=== PATIENT | male | born 1975 | race Caucasian/White ===

== ENCOUNTER → 2018-02-18 17:48 | Outpatient (CLI) | payer OTHER, SELFPAY ==
--- NOTE | 2018-02-18 18:15 | RAD_ITS ---
STUDY: X-RAY - LUMBOSACRAL SPINE REASON FOR EXAM: Male, 42 years old. TECHNIQUE: view(s) of the lumbosacral spine were obtained. COMPARISON: None FINDINGS: Normal lumbar lordosis. There is no substantial scoliosis. There is normal alignment of the vertebrae. Normal vertebral bodies and endplates. Normal disc space heights. There is no spondylolysis or spondylolisthesis The spinous and transverse processes as well as the pedicles are intact. Normal bilateral sacral ala, sacroiliac joints, and visualized sacrum. Normal visualized soft tissue structures. RAD/L/S Spine Comp/w Bending Views IMPRESSION: Normal x-ray examination of the lumbosacral spine. Electronically Signed: Vanessa Jones, at 16:53 EST Tel , Service support ,
== END ==
PROVIDERS: Family Provider Family Medicine; PCP Family Medicine; Referring Provider Anesthesiology Pain Medicine; Visit Provider Anesthesiology Pain Medicine
DX: M54.5 Low back pain (principal)
CPT/HCPCS: 72114

== ENCOUNTER 2023-03-08 18:09 | Emergency (ER) | payer BC, SELFPAY ==
[2023-03-08 18:10] VITALS: BP 188/111; PULSE 89; RESP 16; TEMP 36.4; O2SAT 99; BMI 31.1
--- NOTE | 2023-03-08 18:14 | EKG12_ITS ---
Test Reason : CHEST PRESSURE Blood Pressure : / mmHG Vent. Rate : 084 BPM Atrial Rate : 084 BPM P-R Int : 164 ms QRS Dur : 076 ms QT Int : 352 ms P-R-T Axes : 118 -28 -31 degrees QTc Int : 415 ms Normal sinus rhythm Minimal voltage criteria for LVH, may be normal variant ( R in aVL ) Nonspecific T wave abnormality Abnormal ECG Confirmed by OWEN MAYA, NATHALIE ([id number]), tape editor RUSSELL MARIANO ([id number]) on 03/09/2023 9:37:22 AM Referred By: Confirmed By:NATHALIE WEAVER MD
--- NOTE | 2023-03-08 18:25 | EX.ED.DYSGE1 ---
HPI <PHIL Stewart - Last Filed: 03/08/23 19:42> History of Present Illness Chief Complaint: Palpitations Narrative Narrative: 47-year-old male with PMH of HTN, HLD, remote A-fib status post ablation presents with chest pain. Over the last 2 months he has had episodes of dull pain across both sides of his chest that radiates up to his throat. He will feel warm when the pain occurs but has no shortness of breath, nausea or vomiting. It usually occurs at rest and last 2 to 3 minutes. It happened about once a day but last night woke him up at 2 AM and seemed more intense. He has had more frequent episodes today about 10 times each lasting a couple minutes. It is not exertional or pleuritic. He has no fever or cough. He occasionally feels his heart beating strongly associated with it. He is scheduled for an outpatient 30-day Holter monitor to be put on tomorrow. 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 He takes losartan 100 mgonce daily, metoprolol 50 mg once daily, and a statin. PFSH <PHIL Stewart - Last Filed: 03/08/23 19:42> PFSH Allergy/AdvReac Type Severity Reaction Status Date / Time No Known Allergies Allergy Verified 03/08/23 18:13 Social History Smoking Status: Never smoker ROS <PHIL Stewart - Last Filed: 03/08/23 19:42> ROS ED ROS Narrative Constitutional: Negative for fever, chills, malaise. CVS: Positive for palpitations, chest pain. Negative for syncope. Respiratory: Negative for shortness of breath, cough, orthopnea. GI: Negative for abdominal pain, nausea, vomiting. Neuro: Negative for headache. EXAM <PHIL Stewart Last Filed: 03/08/23 19:42> Physical Exam Narrative Exam Narrative: CONST: Patient sitting in no acute distress. EYES: Normal inspection. NECK: Normal inspection. RESP: No respiratory distress, CTAB. CVS: Regular rate and rhythm, no murmur, no gallop. ABD: Soft and nontender, no guarding or rebound, nondistended. SKIN: Color normal, no rash, warm, dry, intact. EXTREMITIES: Normal appearance, no pedal edema. 2+ radial and DP pulses. NEURO: Oriented x4. PSYCH: Normal affect. Const Vital Signs: 03/08/23 18:10 03/08/23 18:28 Temperature 97.5 F L Temperature Source Temporal Pulse Rate 89 Respiratory Rate 16 Respiratory Effort Normal Blood Pressure 188/111 H Blood Pressure Mean 136 Pulse Ox 99 Oxygen Delivery Method Room Air <Dr. Hernandez Laughlin MD - Last Filed: 03/08/23 18:46> Physical Exam Const Vital Signs: 03/08/23 18:10 03/08/23 18:28 Temperature 97.5 F L Temperature Source Temporal Pulse Rate 89 Respiratory Rate 16 Respiratory Effort Normal Blood Pressure 188/111 H Blood Pressure Mean 136 Pulse Ox 99 Oxygen Delivery Method Room Air MDM <PHIL Stewart - Last Filed: 03/08/23 19:42> MDM MDM Narrative Medical decision making narrative: History gathered from: Patient and spouse Patient has had 2 months of chest pain episodes that occur at rest lasting 2 to 3 minutes. The increase in frequency today prompting him to come in. He is asymptomatic here. BP 188/111, otherwise normal vital signs. Has a history of hypertension on 2 meds and is compliant. His medical exam is unremarkable?RRR with no murmurs. EKG is sinus rhythm with no ischemic changes. CBC and BMP unremarkable. Troponin is 62. Patient states he has not had any chest pain episodes here. I offered to monitor him longer on telemetry and check serial enzymes but he declined. He is scheduled to get his outpatient 30-day Holter monitor placed tomorrow which is appropriate. I discussed return precautions and he was discharged in stable condition. Differential: ACS, arrhythmia, PE, GERD, anxiety Test considered but not ordered: PERC negative so did not order D-dimer Lab Data Attestation: I reviewed the patient's lab results. Labs: Laboratory Results - last 24 hr 03/08/23 18:25 WBC 10.1 RBC 5.00 Hgb 14.8 Hct 43.1 MCV 86.2 MCH 29.6 MCHC 34.3 RDW Std Deviation 38.7 RDW Coeff of Shan 12.4 Plt Count 316 MPV 9.6 Immature Gran % (Auto) 0.200 Neut % (Auto) 55.1 Lymph % (Auto) 33.4 [place] % (Auto) 9.0 Eos % (Auto) 2.1 Baso % (Auto) 0.2 Absolute Neuts (auto) 5.6 Absolute Lymphs (auto) 3.38 Nucleated RBC % 0 Sodium 140 Potassium 4.0 Chloride 105 Carbon Dioxide 27.0 Anion Gap 8 BUN 19 H Creatinine 1.20 Estim Creat Clear Calc 97.08 Est GFR (MDRD) Af Amer 84 Est GFR (MDRD) Non-Af 70 BUN/Creatinine Ratio 15.8 Glucose 93 Calcium 9.5 Troponin I High Sens 62 Radiography Diagnostic Testing: Clinical Impression(s) from Imaging Studies Chest X-Ray 03/08/23 18:35 IMPRESSION: No radiographic evidence of acute cardiopulmonary disease. Electronically Signed: Sabino Jacob MD at 19:03 EST , ED attending interpretation of 2-view chest x-ray shows normal heart size, no acute infiltrate, edema, or effusion. EKG Initial EKG: Comments: Normal sinus rhythm 84 bpm Normal intervals, no acute ischemic change <Dr. Hernandez Laughlin MD - Last Filed: 03/08/23 18:46> [facility] Lab Data Labs: Laboratory Results - last 24 hr 03/08/23 18:25 WBC 10.1 RBC 5.00 Hgb 14.8 Hct 43.1 MCV 86.2 MCH 29.6 MCHC 34.3 RDW Std Deviation 38.7 RDW Coeff of Shan 12.4 Plt Count 316 MPV 9.6 Immature Gran % (Auto) 0.200 Neut % (Auto) 55.1 Lymph % (Auto) 33.4 [place] % (Auto) 9.0 Eos % (Auto) 2.1 Baso % (Auto) 0.2 Absolute Neuts (auto) 5.6 Absolute Lymphs (auto) 3.38 Nucleated RBC % 0 Sodium 140 Potassium 4.0 Chloride 105 Carbon Dioxide 27.0 Anion Gap 8 BUN 19 H Creatinine 1.20 Estim Creat Clear Calc 97.08 Est GFR (MDRD) Af Amer 84 Est GFR (MDRD) Non-Af 70 BUN/Creatinine Ratio 15.8 Glucose 93 Calcium 9.5 Troponin I High Sens 62 Radiography Diagnostic Testing: Clinical Impression(s) from Imaging Studies Chest X-Ray 03/08/23 18:35 IMPRESSION: No radiographic evidence of acute cardiopulmonary disease. Electronically Signed: Sabino Jacob MD at 19:03 EST Reading Location ID and State: [facility] / [place] , Service support , Rhythm Strip Rhythm Strip: Sinus Rhythm Rate: 90 Ectopy: None EKG Initial EKG: Attestation: I personally reviewed and interpreted this EKG as follows: Interpretation: Sinus Rhythm and No Acute Injury Pattern Treatment and Re-Evaluation Comments:: I have personally performed a face to face assessment of the patient and have reviewed the JENNA Note. I performed a substantive portion of the visit including all aspects of the following. My finch findings include: History is brief episodes of chest discomfort and palpitations, no syncope, having going on for months but very frequent today with any light activity. Exam is asymptomatic at the current time, RRR no murmur, CTAB, no edema or calf tenderness. Well-appearing. Medical Decison Making continue to watch patient on monitor while we run basic labs and a troponin. EKG interpreted by myself as normal. Other additions or changes: [None] Discharge Plan Triage Chief Complaint: Palpitations ED Midlevel Provider: Rayna David ED Provider: Hernandez Laughlin Dx/Rx/DC Orders Clinical Impression: Chronic hypertension, Atypical chest pain Instructions: Blood Pressure Check Steps, ED Chest Pain, Uncertain Cause Primary Care Provider: Nanette Zimmer Referrals: Jorge Santiago MD [Non-Staff] - Activity Restrictions/Additional Instructions: Follow-up for his Holter monitor as scheduled, return to ER if symptoms worsen Disposition Disposition: Home, Self Care
--- NOTE | 2023-03-08 18:35 | RAD_ITS ---
EXAM: XR CHEST, 2 VIEWS CLINICAL INDICATION: chest pain TECHNIQUE: Frontal and lateral views of the chest. COMPARISON: No relevant prior studies available. FINDINGS: LUNGS AND PLEURAL SPACES: Unremarkable. No consolidation or edema. No pneumothorax. No effusion. HEART: Unremarkable. Cardiac silhouette not enlarged. MEDIASTINUM: Central airways and mediastinal contour are unremarkable. BONES/JOINTS: Unremarkable. No acute fracture. SOFT TISSUES: Unremarkable. RAD/Chest PA and Lateral IMPRESSION: No radiographic evidence of acute cardiopulmonary disease. Electronically Signed: Sabino Jacob MD at 19:03 EST ,
[2023-03-08 18:48] LABS: Absolute Lymphocyte Count 3.38 X10^3/uL (0.83-4.51); Absolute Neutrophil Count 5.6 X10^3/uL (2.0-7.7); Basophil# 0.02 X10^3/uL; Basophil% 0.2 % (0-1); Eosinophil# 0.21 X10^3/uL; Eosinophils% 2.1 % (0-5); Hematocrit 43.1 % (40-54); Hemoglobin 14.8 g/dL (13.0-16.5); Lymphocyte # 3.38 X10^3/ul (0.83-4.51); Lymphocyte % 33.4 % (19-41); Mean Corp Hgb Conc 34.3 g/dL (32-36); Mean Corpuscular Hgb 29.6 pg (27.0-32.0); Mean Corpuscular Volume 86.2 fL (80-94); Mean Platelet Vol. 9.6 fl (6.2-12.0); Monocyte# 0.91 X10^3/uL; NRBC Flagged by Analyzer 0 % (0-5); Neutrophil # 5.59 X10^3/uL (2.7-7.7); Neutrophil % 55.1 % (47-70); Platelet Count 316 K/mm3 (150-450); RBC Distribution Width CV 12.4 % (11.6-14.6); RBC Distribution Width SD 38.7 fl (35.1-43.9); White Blood Count 10.1 K/mm3 (4.4-11.0)
--- OUTSIDE RECORDS SUMMARY | 2023-03-08 18:57 | XMS RPT_ITS | CCD ---
Author Name Unknown Address [address] [place] [address] Organization [facility] Care Team Providers Care Fusion Analyst Name Role Phone Lexi Avilez Unavailable Unavailable Provider , Unlisted Primary Care Provider Unav ailable Provider , Unlisted Primary Care Provider Unav ailable CARROLL, KENDRA Attending Unavailable CARROLL, KENDRA Admitting Unavailable CARROLL, KENDRA Primary Care Unavailable CARROLL, KENDRA Consulting Unavailable PROVIDER, UNKNOWN Consulting Unavailable CARROLL, KENDRA Attending Unavailable CARROLL, KENDRA Admitting Unavailable CARROLL, KENDRA Primary Care Unavailable CARROLL, KENDRA Consulting Unavailable PROVIDER, UNKNOWN Consulting Unavailable CARROLL, KENDRA Attending Unavailable CARROLL, KENDRA Admitting Unavailable CARROLL, KENDRA Primary Care Unavailable CARROLL, KENDRA Consulting Unavailable PROVIDER, UNKNOWN Consulting Unavailable Problems Active Problems Problem Classification Problem Date Documented Da te Episodic/Chronic Disorders of lipid metabolism (2 sources) Mixed hyperlipidemia; Translations: [Mixed hyperlipidemia] Onset: 01-22-2023 Chronic Essential hypertension (1 source) Essential (primary) hypertension; Translations: [Essential (primary) hypertension] Onset: 02-18-2023 Chronic Other aftercare (1 source) Other half-way (current) drug therapy; Translations: [Other half-way (current) drug therapy] Onset: 01-22-2023 Episodic Unclassified (1 source) Unknown / UNK(Unknown) Onset: 09-17-2017 Past or Other Problems Problem Classification Problem Date Documented Da te Episodic/Chronic Other screening for suspected conditions (not mental disorders or infectious disease) (1 source) Encounter for screening for other suspected endocrine disorder; Translations: [Encounter for screening for other suspected endocrine disorder] Onset: 03-07-2022 Episodic Unclassified (1 source) WOUND LEFT HAND Onset: 09-17-2017 Results Test Name Value Interpretation Reference Range Facil ity Encounters Encounter Date Encounter Type Care Provider Facility Start: 02-18-2023 End: 02-18-2023 ambulatory [facility] Start: 01-22-2023 ambulatory [facility] Start: 03-07-2022 End: 03-07-2022 ambulatory [facility] Start: 04-01-2021 End: 04-01-2021 Subsequent hospital visit by physician Jorge Downing MD [facility] Start: 03-25-2021 End: 03-25-2021 Subsequent hospital visit by physician Jorge Downing MD Work Phone: [facility] Start: 09-17-2017 Patient encounter Lexi Gonzalezelly Marycruz acility:[facility] Procedures Date Procedure Procedure Detail Performing Clinician Start: 04-01-2021 SARS-COV-2, QPCR ([facility]) Jorge Downing MD Plan of Treatment Date Care Activity Detail Author Start: 10-24-2020 Influenza vaccination given INFLUENZA VACCINE (#1) [facility] Start: 2017 Screening mammography MAMMOGRAM [facility] Start: 1998 Screening for malignant neoplasm of cervix PAP SMEAR [facility] Start: 12-27-1995 ANNUAL WELLNESS VISIT ANNUAL WELLNESS VISIT [facility] Start: 1989 Depression screening using PHQ-9 (Patient Health Questionnaire 9) score DEPRESSION SCREENING [facility] Start: 1988 Diphtheria + pertussis + tetanus vaccine (product) DTAP/TDAP/TD VACCINE (1 - Tdap) [facility] Start: 1982 COVID-19 VACCINE (1) COVID-19 VACCINE (1) [facility] Payers Date Payer Category Payer Unknown [employer] PPO [id number] 2019-Present [phone] [address] [place] [address] PPO [id number] 2019 Unknown [employer] PPO [id number] 2019-Present [phone] [address] [place] [address] PPO [id number] 2018 Unknown [id number] 1977 Unknown [id number] 1977 Unknown [id number] 1977 Unknown [id number] Unknown [id number] Social History Date Type Detail Facility Tobacco smoking status [facility] Unknown if ever smoked [facility] Start: 1977 Sex Assigned At Not on file [facility] Tobacco smoking status [facility] Tobacco smoking consumption unknown [facility] Summary Purpose Family History No Family History Records FoundNo Family History Records FoundNo Family History Records FoundNo Family History Records FoundNo Family History Records Found Advance Directives No Advanced Directives Records FoundDocuments on File Type Date Recorded Patient Associate Director Financial Aid Expl anation Advance Directives and Living Will Power of Business And Financial Counsel DNR Documentation Additional Source Comments (unrecognized sect ion and content) No Status Records FoundNo Status Records FoundNo Status Records FoundNo Status Records Found INFORMATION SOURCE (unrecogn ized section and content) DATE CREATED AUTHOR AUTHOR'S ORGANIZ ATION 09/23/2020 [facility] DATE CREATED AUTHOR AUTHOR'S ORGANIZ ATION 04/03/2021 [facility] DATE CREATED AUTHOR AUTHOR'S ORGANIZ ATION 03/08/2022 [facility] DATE CREATED AUTHOR AUTHOR'S ORGANIZ ATION 02/20/2023 [facility] Care Teams (unrecognized sec tion and content) FOR RECORDS PERTAINING TO PATIENTS WHO ARE OR HAVE BEEN ENROLLED IN A CHEMICAL DEPENDENCY/SUBSTANCEABUSE PROGRAM, SOME INFORMATION MAY BE OMITTED. This clinical summary was aggregated from multiple sources. Caution should be exercised in using it in the provision of clinical care. This summary normalizes information from multiple sources, and as a consequence, information in this document may materially change the coding, format and clinical context of patient data. In addition, data may be omitted in some cases. CLINICAL DECISIONS SHOULD BE BASED ON THE PRIMARY CLINICAL RECORDS. [facility]. provides no warranty or guarantee of the accuracy or completeness of information in this document.
[2023-03-08 19:01] LABS: Anion Gap 8 (5-15); BUN 19 mg/dL (7-18); BUN/Creat Ratio 15.8 RATIO (10-20); Calcium,Total 9.5 mg/dL (8.5-10.1); Chloride 105 mmol/L (98-107); EST Glomerular Filtration Rate 70 mL/min (>60); Est Glom Filt Rate - Afr Amer 84 mL/min (>60); Estimated Creatinine Clearance 97.08 ml/min; Glucose 93 mg/dL (74-106); Sodium Level 140 mmol/L (136-145); Troponin-I HS 62 pg/mL (3.0-78.0)
[2023-03-08 19:48] VITALS: BP 144/96; PULSE 81; RESP 16; O2SAT 98
== END 2023-03-08 19:51 | disposition home or self-care (01) ==
PROVIDERS: Physician Assistant; Emergency Provider Emergency Medicine; PCP Family Medicine; Visit Provider Emergency Medicine
DX: R00.2 Palpitations (principal); R07.89 Other chest pain; I10 Essential (primary) hypertension; E78.5 Hyperlipidemia, unspecified; Z79.899 Other long term (current) drug therapy
CPT/HCPCS: 71046; 80048; 84484; 85025; 93005; 99284; A4216

== ENCOUNTER 2023-03-14 12:50 | Inpatient (IN) | payer BC, SELFPAY ==
[2023-03-14] VITALS (25 sets, daily range): BP systolic 124–196; BP diastolic 75–145; PULSE 77–101; RESP 11–20; TEMP 35.7–36.1; O2SAT 98–100; BMI 31.5; BMI 32.5
--- NOTE | 2023-03-14 13:02 | ED.VIS.CHEST ---
HPI History of Present Illness Chief Complaint: Chest Pain Informant: patient and spouse/S.O. Narrative Narrative: Patient presenting with unrelenting chest tightness that started around 5 AM this morning, this was about 8 hours prior to evaluation here in the ER, he came in by private vehicle with his significant other. He was here 1 week ago, he has been having episodes of chest tightness and palpitations for 2 months, 2 weeks ago when he was here he had much more frequent episodes of the palpitations but then once in the emergency department they stopped and his workup was negative, he declined to stay for a second troponin measurement, the initial 1 was borderline but within normal limits and his EKG was normal. Since then, he has had a couple of relatively brief episodes, while on an event monitor that he received the day after his ER visit that was already scheduled, and this is the first time that the discomfort has lasted this long and been unrelenting. It is making him feel nauseated and a little short of breath but no pleuritic discomfort it is substernal radiating to his right neck and jaw. He denies feeling any palpitations today. [facility] Medical History (Updated 03/14/23 @ 13:[address] Hernandez Laughlin MD) Afib HLD (hyperlipidemia) HTN (hypertension) Home Medications famotidine 20 mg tablet 20 mg PO Q12H 03/14/23 [History Last Taken 03/14/23] losartan 100 mg tablet 100 mg PO DAILY 03/14/23 [History Last Taken 03/14/23] metoprolol tartrate 50 mg tablet 50 mg PO DAILY 03/14/23 [History Last Taken Unknown] rosuvastatin 5 mg tablet 5 mg PO DAILY 03/14/23 [History Last Taken Unknown] Allergy/AdvReac Type Severity Reaction Status Date / Time No Known Allergies Allergy Verified 03/14/23 12:59 Surgical History H/O cardiac radiofrequency ablation Social History Smoking Status: Never smoker ROS ROS ED Constitutional Constitutional ED: Reports malaise and weakness; Denies chills or fever(s) Eyes Eyes: Denies change in vision or diplopia ENT ENT ED: Denies rhinorrhea or sore throat Cardiovascular Cardiovascular: Reports chest pain; Denies palpitations Respiratory/Chest Respiratory/Chest: Reports dyspnea; Denies cough Gastrointestinal Gastrointestinal: Reports nausea; Denies abdominal pain, diarrhea or vomiting Genitourinary Genitourinary ED: Denies dysuria or hematuria Musculoskeletal Musculoskeletal: Denies back pain or neck pain Integumentary Denies abscess or rash Neurologic Neurologic: Denies headache(s), paresthesias or weakness Psychiatric Psychiatric: Denies anxiety or suicidal thoughts EXAM Physical Exam Const Vital Signs: 03/14/23 12:50 03/14/23 12:59 03/14/23 13:10 Temperature 96.2 F L Temperature Source Temporal Pulse Rate 88 101 H Respiratory Rate 16 16 18 Blood Pressure 196/135 H 193/145 H 196/135 H Blood Pressure Mean 155 155 Pulse Ox 100 98 Oxygen Delivery Method Room Air Room Air Oxygen Flow Rate (L/min) 03/14/23 13:10 03/14/23 13:13 03/14/23 13:14 Temperature Temperature Source Pulse Rate 92 91 Respiratory Rate 20 H 16 Blood Pressure 188/136 H 188/136 H Blood Pressure Mean 153 153 Pulse Ox 98 99 99 Oxygen Delivery Method Room Air Nasal Cannula Oxygen Flow Rate (L/min) 2 03/14/23 13:21 Temperature Temperature Source Pulse Rate 96 Respiratory Rate Blood Pressure 193/139 H Blood Pressure Mean Pulse Ox Oxygen Delivery Method Oxygen Flow Rate (L/min) Positive well nourished and well developed General Appearance ED: well developed and NAD HEENT Reports moist mucous membranes normocephalic and atraumatic Eyes PERRL and EOMs intact bilaterally Neck full ROM and supple Resp normal respiratory effort and clear to auscultation bilaterally Cardio regular rate, regular rhythm and no murmurs GI non-tender and non-distended Auscultation: normoactive bowel sounds Palpation: soft Back/Spine no CVA tenderness General Back: other FROM Extremity normal to inspection General Extremety ED: Negative for edema, pulses abnormal or tenderness General Extremity: Negative for edema or pulses abnormal Neuro oriented x3, CN's II-XII intact bilaterally and no sensory deficits noted Sensorium / Orientation: awake and alert Motor Exam: strength 5/5 throughout Skin no rashes or lesions noted and no wounds Heart Score History: Highly Suspicious ECG: Significant ST-Depression Age: </= 45 years Risk Factors: 1 or 2 Risk Factors Score: 5 MDM MDM MDM Narrative Medical decision making narrative: EKG was performed upon the patient's arrival and brought to me prior to me seeing the patient, it is consistent with an inferior STEMI. The team was called. Cardiology called and after evaluating the patient I discussed with him and he came to the emergency department and advised heparin and Brilinta. The last 2-month history is relatively less consistent with ischemic symptoms but rather more palpitations. These symptoms seem different compared with what he has been experiencing in the past couple of months. He has been wearing the event monitor for 5 days, no one called him about any dangerous electrical events. Differential includes acute CT as well as coronary vasospasm especially with his extremely high blood pressures, ventricular wall abnormalities, myocarditis, this is not an exclusive list. He is very nauseated and his pressure is very high. He is being given IV fluids, Zofran, morphine, aspirin, Brilinta, heparin. Will continue watching his pressure, but avoiding nitroglycerin given inferior process appearance on the EKG. Cardiology requesting that we hold off on labetalol which is ordered and give him a sublingual nitroglycerin given his pressure. 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 His troponin came back at [address], although this does not make a statement about the etiology. His lungs are clear clinically and 1 view chest x-ray my interpretation does not show acute pulmonary edema or mediastinal widening. History & Record Review Discussion w/independent historian: Patient and Significant other Additional record(s) reviewed:: Prior ED visit and Prior labs Lab Data Attestation: I reviewed the patient's lab results. Labs: Laboratory Results - last 24 hr 03/14/23 13:02 WBC 9.4 RBC 5.05 Hgb 14.7 Hct 43.0 MCV 85.1 MCH 29.1 MCHC 34.2 RDW Std Deviation 37.2 RDW Coeff of Shan 12.1 Plt Count 341 MPV 9.5 Immature Gran % (Auto) 0.300 Neut % (Auto) 52.9 Lymph % (Auto) 35.4 [place] % (Auto) 9.5 Eos % (Auto) 1.6 Baso % (Auto) 0.3 Absolute Neuts (auto) 5.0 Absolute Lymphs (auto) 3.33 Nucleated RBC % 0 PT 13.1 INR 1.0 APTT 30.7 Sodium 136 Potassium 4.1 Chloride 104 Carbon Dioxide 28.0 Anion Gap 4 L BUN 11 Creatinine 1.16 Estim Creat Clear Calc 100.96 Est GFR (MDRD) Af Amer 88 Est GFR (MDRD) Non-Af 72 BUN/Creatinine Ratio 9.5 L Glucose 98 Calcium 9.9 Troponin I High Sens 2580 H* Rhythm Strip Rhythm Strip: Sinus Rhythm Rate: 90 Ectopy: None EKG Initial EKG: Attestation: I personally reviewed and interpreted this EKG as follows: Interpretation: Sinus Rhythm, S-T Elevation (inf) and S-T Depression (lat) Comments: Consistent with inferior STEMI with reciprocal depressions Prior EKG tracings: available for review (EKG 1 week ago normal) Prior: Changed Management Discussion w/another healthcare provider: Motor Tester ([facility] Cardiology) Critical Care Time Critical Care Time: Yes Critical care time (excluding procedures): 30-74 minutes (38 min), Including time spent:, Discussing w/Patient &/or Family/Integrated Circuit Design Engineer, Discussing w/Consultants, Arranging Admission or Transfer and Performing Direct Patient Care at Bedside Discharge Plan Dx/Rx/DC Orders Clinical Impression: Acute ST elevation myocardial infarction (STEMI) of inferior wall Disposition Disposition: Acute Care Hospital [facility]
--- NOTE | 2023-03-14 13:03 | RAD_ITS ---
STUDY: X-RAY CHEST REASON FOR EXAM: Male, 47 years old. Chest pain TECHNIQUE: Frontal view of the chest COMPARISON: 03/08/2023 FINDINGS: The lungs are clear. There are no pleural effusions. There is no pneumothorax. The heart is normal in size. There is a battery pack overlying the left upper hemithorax. The visualized osseous structures are within normal limits. RAD/Chest 1 View (Portable) IMPRESSION: No acute thoracic pathology. Electronically Signed: Sid Cool MD at 13:36 EST ,
--- OUTSIDE RECORDS SUMMARY | 2023-03-14 13:03 | XMS RPT_ITS | CCD ---
Author Name Unknown Address [address] [place] [address] Organization [facility] Care Team Providers Care Demand Manager Name Role Phone Lexi Avilez Unavailable Unavailable Provider , Unlisted Primary Care Provider Unav ailable Provider , Unlisted Primary Care Provider Unav ailable SANTA ISABEL, KENDRA Attending Unavailable S[place] ISABEL, KENDRA Admitting Unavailable SANTA ISABEL, KENDRA Primary Care Unavailable SANTA ISABEL, KENDRA Consulting Unavailable PROVIDER, UNKNOWN Consulting Unavailable S[place] ISABEL, KENDRA Attending Unavailable S[place] ISABEL, KENDRA Admitting Unavailable S[place] ISABEL, KENDRA Primary Care Unavailable SANT[place] ISABEL, KENDRA Consulting Unavailable PROVIDER, UNKNOWN Consulting Unavailable S[place] ISABEL, KENDRA Attending Unavailable S[place] ISABEL, KENDRA Admitting Unavailable S[place] ISABEL, KENDRA Primary Care Unavailable SANT[place] ISABEL, KENDRA Consulting Unavailable PROVIDER, UNKNOWN Consulting Unavailable Problems Active Problems Problem Classification Problem Date Documented Da te Episodic/Chronic Disorders of lipid metabolism (2 sources) Mixed hyperlipidemia; Translations: [Mixed hyperlipidemia] Onset: 02-18-2023 Chronic Essential hypertension (1 source) Essential (primary) hypertension; Translations: [Essential (primary) hypertension] Onset: 02-18-2023 Chronic Other aftercare (1 source) Other senior living (current) drug therapy; 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] Onset: 03-10-2023 Episodic Unclassified (1 source) Unknown / UNK(Unknown) Onset: 09-17-2017 Past or Other Problems Problem Classification Problem Date Documented Da te Episodic/Chronic Unclassified (1 source) WOUND LEFT HAND Onset: 09-17-2017 Results Test Name Value Interpretation Reference Range Facil ity Encounters Encounter Date Encounter Type Care Provider Facility Start: 03-10-2023 End: 03-10-2023 ambulatory [facility] Start: 03-09-2023 End: 03-09-2023 ambulatory [facility] Start: 02-18-2023 End: 02-18-2023 ambulatory [facility] Start: 04-01-2021 End: 04-01-2021 Subsequent hospital visit by physician Jorge Downing MD [facility] Start: 03-25-2021 End: 03-25-2021 Subsequent hospital visit by physician Jorge Downing MD Work Phone: [facility] Start: 09-17-2017 Patient encounter Lexi Valle Fatmata Marycruz acility:[facility] Procedures Date Procedure Procedure Detail Performing Clinician Start: 04-01-2021 SARS-COV-2, QPCR ([facility] LAB) Jorge Downing MD Plan of Treatment Date Care Activity Detail Author Start: 10-24-2020 Influenza vaccination given INFLUENZA VACCINE (#1) [facility] Start: 2017 Screening mammography MAMMOGRAM [facility] Start: 1998 Screening for malignant neoplasm of cervix PAP SMEAR [facility] Start: 12-27-1995 ANNUAL WELLNESS VISIT ANNUAL WELLNESS VISIT [facility] Start: 1989 Depression screening using PHQ-9 (Patient Health Questionnaire 9) score DEPRESSION SCREENING [facility] Start: 1988 Diphtheria + pertussis + tetanus vaccine (product) DTAP/TDAP/TD VACCINE (1 - Tdap) [facility] Start: 1982 COVID-19 VACCINE (1) COVID-19 VACCINE (1) [facility] Payers Date Payer Category Payer Unknown [employer] PPO [id number] 2019-Present [phone] [address] [place] [address] PPO [id number] 2019 Unknown [employer] PPO [id number] 2019-Present [phone] [address] [place] [address] PPO [id number] 2018 Unknown [id number] 1977 Unknown [id number] 1977 Unknown [id number] 1977 Unknown [id number] Unknown [id number] Social History Date Type Detail Facility Tobacco smoking status [facility] Unknown if ever smoked [facility] Start: 1977 Sex Assigned At Not on file [facility] Tobacco smoking status [facility] Tobacco smoking consumption unknown [facility] Summary Purpose Family History No Family History Records FoundNo Family History Records FoundNo Family History Records FoundNo Family History Records FoundNo Family History Records Found Advance Directives No Advanced Directives Records FoundDocuments on File Type Date Recorded Patient Medical Oncology Physician Expl anation Advance Directives and Living Will Power of Supervisor Newspaper Deliveries DNR Documentation Additional Source Comments (unrecognized sect ion and content) No Status Records FoundNo Status Records FoundNo Status Records FoundNo Status Records Found INFORMATION SOURCE (unrecogn ized section and content) DATE CREATED AUTHOR AUTHOR'S ORGANIZ ATION 09/23/2020 [facility] DATE CREATED AUTHOR AUTHOR'S ORGANIZ ATION 04/03/2021 [facility] DATE CREATED AUTHOR AUTHOR'S ORGANIZ ATION 03/08/2022 [facility] DATE CREATED AUTHOR AUTHOR'S ORGANIZ ATION 03/11/2023 [facility] Care Teams (unrecognized sec tion and [...] BE BASED ON THE PRIMARY CLINICAL RECORDS. [facility]. provides no warranty or guarantee of the accuracy or completeness of information in this document.
[2023-03-14] MEDS: Heparin Injection (Vial) 5,000 UNIT/ML VIAL 4000 UNIT IV (13:05)
[2023-03-14] MEDS: Morphine 4 MG/ML Syringe IV (13:06)
[2023-03-14] MEDS: Ondansetron 4 MG/2 ML Vial IV ×2 (13:06→16:08)
[2023-03-14] MEDS: TICAGRELOR 90 MG TABLET 180 MG PO (13:06)
[2023-03-14] MEDS: Aspirin 81 MG TAB.CHEW 324 MG PO (13:07)
[2023-03-14] MEDS: 0.9% Normal Saline (1000mL) 1,000 ML 999 ML IV (13:09)
[2023-03-14 13:11] LABS: Absolute Lymphocyte Count 3.33 X10^3/uL (0.83-4.51); Basophil# 0.03 X10^3/uL; Basophil% 0.3 % (0-1); Eosinophil# 0.15 X10^3/uL; Eosinophils% 1.6 % (0-5); Hemoglobin 14.7 g/dL (13.0-16.5); Lymphocyte # 3.33 X10^3/ul (0.83-4.51); Lymphocyte % 35.4 % (19-41); Mean Corp Hgb Conc 34.2 g/dL (32-36); Mean Corpuscular Hgb 29.1 pg (27.0-32.0); Mean Corpuscular Volume 85.1 fL (80-94); Mean Platelet Vol. 9.5 fl (6.2-12.0); Monocyte# 0.89 X10^3/uL; Monocyte% 9.5 % (0-10); NRBC Flagged by Analyzer 0 % (0-5); Neutrophil # 4.98 X10^3/uL (2.7-7.7); Neutrophil % 52.9 % (47-70); Platelet Count 341 K/mm3 (150-450); RBC Distribution Width CV 12.1 % (11.6-14.6); RBC Distribution Width SD 37.2 fl (35.1-43.9); Red Blood Count 5.05 M/mm3 (4.6-6.2); White Blood Count 9.4 K/mm3 (4.4-11.0)
[2023-03-14 13:17] LABS: Partial Thromboplast Time 30.7 Seconds (24.1-36.2)
[2023-03-14] MEDS: Nitroglycerin SL (ED/IMG/CATH) 0.4 MG TABLET 0.400000000000000022 MG SL (13:21)
[2023-03-14 13:22] LABS: Prothrombin Time (Protime)PT. 13.1 SECONDS (11.7-14.9)
[2023-03-14] MEDS: hydrALAZINE 20 MG/ML Vial 10 MG IV (13:23)
[2023-03-14 13:27] LABS: Anion Gap 4 (5-15); BUN 11 mg/dL (7-18); BUN/Creat Ratio 9.5 RATIO (10-20); Calcium,Total 9.9 mg/dL (8.5-10.1); Chloride 104 mmol/L (98-107); Creatinine, Serum 1.16 mg/dL (0.70-1.30); EST Glomerular Filtration Rate 72 mL/min (>60); Est Glom Filt Rate - Afr Amer 88 mL/min (>60); Estimated Creatinine Clearance 100.96 ml/min; Glucose 98 mg/dL (74-106); Potassium 4.1 mmol/L (3.5-5.1); Sodium Level 136 mmol/L (136-145); Troponin-I HS 2580 pg/mL (3.0-78.0)
--- OUTSIDE RECORDS SUMMARY | 2023-03-14 13:31 | XMS RPT_ITS | CCD ---
Author Name Unknown Address [address] [place] [address] Organization [facility] Care Team Providers Care Decal Decorator Name Role Phone Lexi Avilez Unavailable Unavailable Provider , Unlisted Primary Care Provider Unav ailable Provider , Unlisted Primary Care Provider Unav ailable WINDSOR, KENDRA Attending Unavailable WINDSOR, KENDRA Admitting Unavailable WINDSOR, KENDRA Primary Care Unavailable WINDSOR, KENDRA Consulting Unavailable PROVIDER, UNKNOWN Consulting Unavailable WINDSOR, KENDRA Attending Unavailable WINDSOR, KENDRA Admitting Unavailable WINDSOR, KENDRA Primary Care Unavailable WINDSOR, KENDRA Consulting Unavailable PROVIDER, UNKNOWN Consulting Unavailable WINDSOR, KENDRA Attending Unavailable WINDSOR, KENDRA Admitting Unavailable WINDSOR, KENDRA Primary Care Unavailable WINDSOR, KENDRA Consulting Unavailable PROVIDER, UNKNOWN Consulting Unavailable Problems Active Problems Problem Classification Problem Date Documented Da te Episodic/Chronic Disorders of lipid metabolism (2 sources) Mixed hyperlipidemia; Translations: [Mixed hyperlipidemia] Onset: 02-18-2023 Chronic Essential hypertension (1 source) Essential (primary) hypertension; Translations: [Essential (primary) hypertension] Onset: 02-18-2023 Chronic Other aftercare (1 source) Other halfway (current) drug therapy; Translations: [Other director long term care (current) drug therapy] Onset: 03-10-2023 Episodic Unclassified (1 source) Unknown / UNK(Unknown) Onset: 09-17-2017 Past or Other Problems Problem Classification Problem Date Documented Da te Episodic/Chronic Unclassified (1 source) WOUND LEFT HAND Onset: 09-17-2017 Results Test Name Value Interpretation Reference Range Facil ity Encounters Encounter Date Encounter Type Care Provider Facility Start: 03-10-2023 End: 03-10-2023 ambulatory [facility] Start: 03-09-2023 End: 03-09-2023 ambulatory [facility] Start: 02-18-2023 End: 02-18-2023 ambulatory [facility] Start: 04-01-2021 End: 04-01-2021 Subsequent hospital visit by physician Jorge Downing MD [facility] Start: 03-25-2021 End: 03-25-2021 Subsequent hospital visit by physician Jorge Downing MD Work Phone: [facility] Start: 09-17-2017 Patient encounter Lexi Valle Fatmata Marycruz acility:[facility] Procedures Date Procedure Procedure Detail Performing Clinician Start: 04-01-2021 SARS-COV-2, QPCR ([facility]) Jorge Downing MD Plan of Treatment Date Care Activity Detail Author Start: 10-24-2020 Influenza vaccination given INFLUENZA VACCINE (#1) [facility] Start: 2017 Screening mammography MAMMOGRAM [facility] Start: 1998 Screening for malignant neoplasm of cervix PAP SMEAR [facility] Start: 12-27-1995 ANNUAL WELLNESS VISIT ANNUAL WELLNESS VISIT [facility] Start: 1989 Depression screening using PHQ-9 (Patient Health Questionnaire 9) score DEPRESSION SCREENING [facility] Start: 1988 Diphtheria + pertussis + tetanus vaccine (product) DTAP/TDAP/TD VACCINE (1 - Tdap) [facility] Start: 1982 COVID-19 VACCINE (1) COVID-19 VACCINE (1) [facility] Payers Date Payer Category Payer Unknown [employer] PPO [id number] 2019-Present [phone] [address] [place] [address] PPO [id number] 2019 Unknown [employer] PPO [id number] 2019-Present [phone] [address] [place] [address] PPO [id number] 2018 Unknown [id number] 1975 Unknown [id number] 1975 Unknown [id number] 1975 Unknown [id number] Unknown [id number] Social History Date Type Detail Facility Tobacco smoking status [facility] Unknown if ever smoked [facility] Start: 1977 Sex Assigned At Not on file [facility] Tobacco smoking status [facility] Tobacco smoking consumption unknown [facility] Summary Purpose Family History No Family History Records FoundNo Family History Records FoundNo Family History Records FoundNo Family History Records FoundNo Family History Records Found Advance Directives No Advanced Directives Records FoundDocuments on File Type Date Recorded 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 Advance Directives and Living Will 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 DNR Documentation Additional Source Comments (unrecognized sect ion and content) No Status Records FoundNo Status Records FoundNo Status Records FoundNo Status Records Found INFORMATION SOURCE (unrecogn ized section and content) DATE CREATED AUTHOR AUTHOR'S ORGANIZ ATION 09/23/2020 [facility] DATE CREATED AUTHOR AUTHOR'S ORGANIZ ATION 04/03/2021 [facility] DATE CREATED AUTHOR AUTHOR'S ORGANIZ ATION 03/08/2022 [facility] DATE CREATED AUTHOR AUTHOR'S ORGANIZ ATION 03/11/2023 [facility] Care Teams (unrecognized sec tion [...] BE BASED ON THE PRIMARY CLINICAL RECORDS. [facility]. provides no warranty or guarantee of the accuracy or completeness of information in this document.
--- NOTE | 2023-03-14 14:30 | PCI.CARDCATH ---
PCI Cardiac Cath Report PCI Report: PCI?cardiac cath report 1. 6 [place] sheath in the right radial artery 2. Selective left coronary angiography 3. Selective right coronary angiography 4. Successful PCI of the culprit occluded 100% mid LAD with predilatation using 2.5 x 15 mm balloon, followed by placement of drug-eluting stent 3.5 x 38 mm Postdilated with 3.5 x 15 mm NC balloon with 0% post PCI and improvement from FARRAH 0 to FARRAH-3 5. Placement of TR band to close the right radial artery arteriotomy site. Consent risk and benefit of procedure explained detail patient agreed to proceed informed consent obtained. Preprocedure diagnosis; 47-year-old patient presented to the ER complaining of an relenting chest tightness that started around 5:00 this morning. He came into the ER and he had change in the EKG and he continued to have symptoms of chest pain Was given heparin aspirin as well as nitroglycerin which mildly relieved relieve his symptoms He had a significant change in the EKG with ST elevation noted in the inferior lead reciprocal change noted in the anterolateral Also had already Q wave in lead III. Interventional equipment and diagnostic catheter 1. 5 [place] JL 3.5 diagnostic catheter 2. 5 [place] JR4 diagnostic catheter 3. 0.014 180 cm run-through extra floppy straight guidewire 4. 0.035 to 60 cm exchanged wire 6. 2.5 x 15 mm Euphora balloon 7. 3.5 x 38 mm [place] frontier drug-eluting stent 8. 3.5 x 15 mm NC Euphora Rx balloon Medication used in the Occupational Therapist Per Diem Heparin with acceptable ACT 2. Patient already given Brilinta and aspirin in the ER Procedure in detail; Patient brought as an emergency to the Occupational Therapist Per Diem. Right radial artery area prepped and draped in the usual sterile fashion 6 [place] Terumo sheath was placed in the right radial artery Will proceed with a diagnostic catheter 5 [place] JL 3 5 advanced sending aorta cannulated the left main multiple views the left coronary system were obtained. We noted there is collateral left to right collaterals Therefore we will proceed with JR4 and 2 views of the RCA. Obtained Identified the lesion as occluded mid RCA. Which is a large vessel Patient continued to have symptoms of chest pain and change in the EKG. Therefore we will proceed with the guide catheter which is 6 [place] MP catheter Advancing over the cannulated the RCA ostium Then we will proceed with run-through guidewire across the lesion predilated the lesion followed by placement of drug-eluting stent and postdilated with 3.5 x 15 mm NC and achieved an excellent result Symptoms of chest pain improved as well as change in the EKG noted with ST segment improved. Following this we will proceed with a pigtail catheter and LV ventriculogram obtained 30 degree out of projection. Findings Hemodynamics; Ejection fraction in the range of around 40-45% with inferobasal hypokinesia No systolic gradient across aortic valve. No mitral regurgitation noted. LVEDP measuring around 80 mmHg. Coronary angiography; 1. Left main is short bifurcating into LAD and left circumflex 2. Left anterior descending is a large vessel reach all the way to the apex Angiographically there is no obstructive atherosclerosis noted in the LAD There is diagonal is a small with ostial lesion Second diagonal had an ostial lesion of around 50-60% The left circumflex angiographically proximally the circumflex had eccentric lesion of around 30% This has a large OM1 and OM 2. RCA the culprit occluded in the mid with successful PCI as described. Conclusion and recommendations; This patient has acute inferior LA/STEMI he already have a ongoing symptoms for couple of days worsening of the symptoms around 5:00 this morning. With a Q wave noted in the lead III Underwent successful PCI of the culprit lesion is identified 1. Patient to continue on dual antiplatelet therapy with Brilinta 90 mg twice daily in addition to low-dose aspirin for 1 year 2. Change pravastatin to atorvastatin 80 mg 3. He was on losartan we will continue losartan 50 mg twice daily 4. Beta-charles he was on metoprolol we will continue metoprolol. Patient will be admitted to ICU for continuation of cardiac care. Patient will be scheduled for cardiac rehab program. Jaky Rocha MD,[facility]
--- NOTE | 2023-03-14 14:31 | PCM.HP.STD ---
HPI - General General Date of Admission: 03/14/23 Date of Service: 03/14/23 Chief Complaint: Chest Pain HPI Narrative WERO CARREON, is a 47 M who presented to the emergency department at [facility] on 03/14/2023 complaining of unrelenting chest pain that started about 5 AM on the morning of presentation. He had been suffering from pain for about 8 hours prior to presenting. He presented by private vehicle with his significant other and was seen here about 1 week ago complaining of chest tightness and palpitations that had been ongoing for about 2 months. He had a negative workup then and declined to stay for second troponin measurement. His initial troponin was high normal but he had normal EKGs at that time. Since then he had a couple of brief episodes but they both subsided. Today is the first time he had had any significant unrelenting pain. He had associated nausea and shortness of breath. The pain was substernal and radiated to his right neck and jaw. He has a known history hypertension hyperlipidemia as well as A-fib for which she has previously had a cardiac radiofrequency ablation. He is a never smoker but does use chewing tobacco. Patient states his father has a past medical history of coronary disease and was first stented in his 50s. His reports he has at least 14 stents at this time. He does not know medical history of his mother or any his brothers and sisters. EKG on arrival was consistent with an inferior STEMI and STEMI team was called. His initial troponin was 2580. He was taken emergently to the Geriatric Nurse after being given heparin and Brilinta in the emergency department where he was found to have a 100% occluded mid LAD for which a ALEENA was placed and following had FARRAH flow 3. Vital signs show temperature of 96.2, blood pressure 196/145 with a repeat at 171/115, heart rate has been between 90 and 101, respiratory to 18 oxygen saturations are 98% on room air. His CBC is unremarkable. Chemistry panel is overtly unremarkable. Coags are normal. Again, initial troponin was 2580. Chest x-ray was unremarkable. EKG as noted above. He is currently complaining of some chest pain. Stat repeat EKG was obtained and shows no difference from post catheterization EKG. Cardiology is aware and has ordered 2 mg of morphine and nursing was instructed to call cardiology back if this does not help with the symptoms and that he would obtain a CT. Awaiting further cardiology recommendation FOR[facility], [facility] Medical History (Updated 03/14/23 @ 16:[address] Aleah Chris DO) Afib HLD (hyperlipidemia) HTN (hypertension) Tobacco abuse Home Medications famotidine 20 mg tablet 20 mg PO Q12H 03/14/23 [History Last Taken 03/14/23] losartan 100 mg tablet 100 mg PO DAILY 03/14/23 [History Last Taken 03/14/23] metoprolol tartrate 50 mg tablet 50 mg PO DAILY 03/14/23 [History Last Taken Unknown] rosuvastatin 5 mg tablet 5 mg PO DAILY 03/14/23 [History Last Taken Unknown] Allergy/AdvReac Type Severity Reaction Status Date / Time No Known Allergies Allergy Verified 03/14/23 12:59 Family History Father CAD (coronary artery disease) Surgical History H/O cardiac radiofrequency ablation Social History (Updated 03/14/23 @ 16:[address] Aleah Chris DO) household members: family housing: house Smoking Status: Former smoker Smokeless tobacco user: chewing tobacco alcohol intake: current alcohol intake frequency: holidays/special occasions only substance use type: does not use ROS Constitutional Constitutional: Denies anorexia, change in weight, chills, fatigue, fever(s), malaise, night sweats, weakness or other Eyes Eyes: Denies blurry vision, change in eye color, change in vision, discharge from eye(s), double vision, erythema, eye pain, loss of vision or other ENT HEENT: Denies abnormal hearing, dysphagia, ear pain, epistaxis, headache(s), hearing loss, nasal congestion, nasal discharge, post nasal drip, sinus pressure, sore throat or other Cardiovascular Cardiovascular: Reports chest pain and palpitations; Denies claudication, dyspnea on exertion, edema, lightheadedness, orthopnea, paroxysmal nocturnal dyspnea, rapid heart rate, syncope or other Respiratory/Chest Respiratory/Chest: Reports dyspnea and shortness of breath at rest; Denies cough, excessive phlegm production, hemoptysis, productive cough, shortness of breath with exertion, wheezing or other Gastrointestinal Gastrointestinal: Reports nausea; Denies abdominal pain, coffee ground emesis, constipation, diarrhea, dyspepsia, hematemesis, hematochezia, loose stools, melena, vomiting or other Genitourinary Genitourinary: Denies burning urination, difficulty urinating, dysuria, hematuria, nocturia, urinary frequency, urinary hesitancy, urinary incontinence, urinary urgency or other Musculoskeletal Musculoskeletal: Denies arthralgias, back pain, joint pain, joint stiffness, joint swelling, myalgias, neck pain or other Neurologic Neurologic: Denies abnormal gait, abnormal speech, confusion, disequilibrium, dizziness, focal weakness, headache(s), numbness, paresthesias, seizure-like activity, seizures, syncope, tingling, tremor(s) or other Psychiatric Psychiatric: Denies anxiety, depression, homicidal ideation, suicidal ideation or other Endocrine Endocrinology: Denies change in body appearance, cold intolerance, excessive sweating, heat intolerance, polydipsia, polyuria or other Hematologic/Lymphatic Hematologic/Lymphatic: Denies anemia, easy bleeding, easy bruising, lymphadenopathy or other Allergic/Immunologic Allergic/Immunologic: Denies rhinitis, hives, eczemia, asthma or other Vital Signs Vital Signs Vital Signs: 03/14/23 12:50 03/14/23 12:59 03/14/23 13:10 Temperature 96.2 F L Temperature Source Temporal Pulse Rate 88 101 H Respiratory Rate 16 16 18 Blood Pressure 196/135 H 193/145 H 196/135 H Blood Pressure Mean 155 155 Pulse Ox 100 98 Oxygen Delivery Method Room Air Room Air Oxygen Flow Rate (L/min) 03/14/23 13:10 03/14/23 13:13 03/14/23 13:14 Temperature Temperature Source Pulse Rate 92 91 Respiratory Rate 20 H 16 Blood Pressure 188/136 H 188/136 H Blood Pressure Mean 153 153 Pulse Ox 98 99 99 Oxygen Delivery Method Room Air Nasal Cannula Oxygen Flow Rate (L/min) 2 03/14/23 13:21 03/14/23 13:30 Temperature Temperature Source Pulse Rate 96 Respiratory Rate Blood Pressure 193/139 H 171/115 H Blood Pressure Mean 133 Pulse Ox Oxygen Delivery Method Oxygen Flow Rate (L/min) Weight Weight: 105.506 kg Body Mass Index (BMI) 31.5 Physical Exam Const alert, oriented x3 and well nourished; Negative for no apparent distress, average body habitus or healthy appearing Constitutional Narrative: Uncomfortable appearing, middle-aged, white male, lying in bed, family at bedside, nursing at bedside, patient is complaining of chest pain and nausea with chest pain radiating to his back General Appearance: cooperative HEENT normocephalic, head/scalp atraumatic, hearing grossly normal bilaterally and moist oral mucous membranes HEENT Narrative: Mallampati 3 Resp normal respiratory effort, no retractions, no use of accessory muscles and clear to auscultation bilaterally Auscultation: Negative for rales, rhonchi or wheezes Cardio regular rate, regular rhythm, S1 normal heart sound, S2 normal heart sound, no murmurs, no rub, no gallops and no clicks GI normal to inspection, nondistended, normoactive bowel sounds, soft to palpation and non-tender Extremity no clubbing, cyanosis or edema Extremity Narrative: Right radial artery with post catheterization compression device in place, appears to have good hand blood flow from ulnar artery Neuro oriented x3, moves all extremities and no focal motor deficits Speech: speech normal Psych Psych Narrative: Affect is flattened patient appears uncomfortable at this time Results Lab / Micro Data Attestation: I reviewed the patient's lab results. 03/14/23 13:02 03/14/23 13:02 Labs: Laboratory Results - last 24 hr 03/14/23 13:02: WBC 9.4, RBC 5.05, Hgb 14.7, Hct 43.0, MCV 85.1, MCH 29.1, MCHC 34.2, RDW Std Deviation 37.2, RDW Coeff of Shan 12.1, Plt Count 341, MPV 9.5, Immature Gran % (Auto) 0.300, Neut % (Auto) 52.9, Lymph % (Auto) 35.4, Hand % (Auto) 9.5, Eos % (Auto) 1.6, Baso % (Auto) 0.3, Absolute Neuts (auto) 5.0, Absolute Lymphs (auto) 3.33, Nucleated RBC % 0, PT 13.1, INR 1.0, APTT 30.7, Sodium 136, Potassium 4.1, Chloride 104, Carbon Dioxide 28.0, Anion Gap 4 L, BUN 11, Creatinine 1.16, Estim Creat Clear Calc 100.96, Est GFR (MDRD) Af Amer 88, Est GFR (MDRD) Non-Af 72, BUN/Creatinine Ratio 9.5 L, Glucose 98, Calcium 9.9, Troponin I High Sens 2580 H* Rhythm Strip Rhythm Strip: Sinus Rhythm Rate: 90 Ectopy: None Imagaing Radiology Impression Chest X-Ray 03/14/23 13:03 IMPRESSION: No acute thoracic pathology. Electronically Signed: Sid Cool MD at 13:36 EST , Assessment & Plan Assessment/Plan (1) Acute ST elevation myocardial infarction (STEMI) of inferior wall: PLAN: Plan Inferior wall STEMI -Status post PCI to with ALEENA -Start aspirin -Start Brilinta -Start atorvastatin 80 mg nightly -Start metoprolol 25 mg p.o. twice daily -Continue home losartan but reduce dose to 50 mg twice daily and titrate up -Check echocardiogram -Check lipid panel -Cardiology is following-appreciate assistance in care -Morphine given for post catheterization chest pain and cardiology is aware and considering CT of the chest if pain is not improved with morphine HTN -Continue metoprolol and losartan as initiated by cardiology -Expect that we will need to uptitrate medications prior to discharge -Will start as needed hydralazine for systolic pressure greater than 160 Hyperlipidemia -Check lipids -Atorvastatin 80 mg daily at at bedtime -Hold home rosuvastatin GERD -Continue home famotidine Obesity -BMI 31.5 -Recommend weight loss -Complicates treatment, prognosis, outcomes Tobacco abuse -Recommend cessation -Patient uses chewing tobacco -Denies need for nicotine replacement at this time DVT prophylaxis -Subcu Lovenox daily CODE STATUS -Full code Charges/Coding Visit Charges Inpatient E&M: 28211 Init Hosp L2
--- OUTSIDE RECORDS SUMMARY | 2023-03-14 14:52 | XMS RPT_ITS | CCD ---
Author Name Unknown Address [address] [place] [address] Organization [facility] Care Team Providers Care [employer] Developer Name Role Phone Lexi Avilez Unavailable Unavailable Provider , Unlisted Primary Care Provider Unav ailable Provider , Unlisted Primary Care Provider Unav ailable UBLY, KENDRA Attending Unavailable UBLY, KENDRA Admitting Unavailable UBLY, KENDRA Primary Care Unavailable UBLY, KENDRA Consulting Unavailable PROVIDER, UNKNOWN Consulting Unavailable UBLY, KENDRA Attending Unavailable UBLY, KENDRA Admitting Unavailable UBLY, KENDRA Primary Care Unavailable UBLY, KENDRA Consulting Unavailable PROVIDER, UNKNOWN Consulting Unavailable UBLY, KENDRA Attending Unavailable UBLY, KENDRA Admitting Unavailable UBLY, KENDRA Primary Care Unavailable UBLY, KENDRA Consulting Unavailable PROVIDER, UNKNOWN Consulting Unavailable Problems Active Problems Problem Classification Problem Date Documented Da te Episodic/Chronic Disorders of lipid metabolism (2 sources) Mixed hyperlipidemia; Translations: [Mixed hyperlipidemia] Onset: 02-18-2023 Chronic Essential hypertension (1 source) Essential (primary) hypertension; Translations: [Essential (primary) hypertension] Onset: 02-18-2023 Chronic Other aftercare (1 source) Other jail (current) drug therapy; 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 Start: 03-09-2023 End: 03-09-[address] [facility] Start: 02-18-2023 End: 02-18-[address] [facility] Start: 04-01-2021 End: 04-01-2021 Subsequent hospital visit by physician Jorge Downing MD [facility] Start: 03-25-2021 End: 03-25-2021 Subsequent hospital visit by physician Jroge Downing MD Work Phone: [facility] Start: 09-17-2017 Patient encounter Lexi Valle Fatmata Marycruz acility:[facility] Procedures Date Procedure Procedure Detail Performing Clinician Start: 04-01-2021 SARS-COV-2, QPCR ([facility]) Jorge Downing MD Plan of Treatment Date Care Activity Detail Author Start: 10-24-2020 Influenza vaccination given INFLUENZA VACCINE (#1) [facility] Start: 2017 Screening mammography MAMMOGRAM [facility] Start: 1998 Screening for malignant neoplasm of cervix PAP SMEAR [facility] Start: 12-27-1995 ANNUAL WELLNESS VISIT ANNUAL WELLNESS VISIT [facility] Start: 1989 Depression screening using PHQ-9 (Patient Health Questionnaire 9) score DEPRESSION SCREENING [facility] Start: 1988 Diphtheria + pertussis + tetanus vaccine (product) DTAP/TDAP/TD VACCINE (1 - Tdap) [facility] Start: 1982 COVID-19 VACCINE (1) COVID-19 VACCINE (1) [facility] Payers Date Payer Category Payer Unknown [employer] P[employer] [id number] 2019-Present [phone] [address] [place] [address] PPO [id number] 2019 Unknown [employer] PPO [id number] 2019-Present [phone] [address] [place] [address] PPO [id number] 2018 Unknown [id number] 1977 Unknown [id number] 1977 Unknown [id number] 1977 Unknown [id number] Unknown [id number] Social History Date Type Detail Facility Tobacco smoking status [facility] Unknown if ever smoked [facility] Start: 1977 Sex Assigned At Not on file [facility] Tobacco smoking status [facility] Tobacco smoking consumption unknown [facility] Summary Purpose Family History No Family History Records FoundNo Family History Records FoundNo Family History Records FoundNo Family History Records FoundNo Family History Records Found Advance Directives No Advanced Directives Records FoundDocuments on File Type Date Recorded Patient Transportation Aide Expl anation Advance Directives and Living Will Power of Assistant Sales Manager DNR Documentation Additional Source Comments (unrecognized sect ion and content) No Status Records FoundNo Status Records FoundNo Status Records FoundNo Status Records Found INFORMATION SOURCE (unrecogn ized section and content) DATE CREATED AUTHOR AUTHOR'S ORGANIZ ATION 09/23/2020 [facility] DATE CREATED AUTHOR AUTHOR'S ORGANIZ ATION 04/03/[address] [facility] DATE CREATED AUTHOR AUTHOR'S ORGANIZ ATION 03/08/2022 [facility] DATE CREATED AUTHOR AUTHOR'S ORGANIZ ATION 03/11/2023 [facility] Care Teams (unrecognized sec tion and content) [...] BE BASED ON THE PRIMARY CLINICAL RECORDS. [employer] [facility]. provides no warranty or guarantee of the accuracy or completeness of information in this document.
[2023-03-14] MEDS: 0.9% Normal Saline (1000mL) 1,000 ML 75 ML IV (15:10)
[2023-03-14] MEDS: Morphine 2 MG/ML Syringe IV (16:25)
--- NOTE | 2023-03-14 16:58 | CT_ITS ---
STUDY: CT CHEST WITH T WITHOUT CONTRAST REASON FOR EXAM: Male, 47 years old. rule out aortic disection RADIATION DOSAGE (If Supplied By Facility): CTDIvol = ( 22.11 ) mGy, DLP = ( 592.61 ) mGycm TECHNIQUE: Transaxial imaging was performed pre-and post contrast administration of IV 75mL Isovue-370. Multiplanar coronal and sagittal images were reformatted. Individualized dose optimization techniques were used for this CT. COMPARISON: None. FINDINGS: There is trace posterior dependent atelectasis with left lower lobe subpleural bulla measuring 3 cm. Otherwise normal lung parenchyma. There is no demonstrated pleural abnormality. Normal heart and pericardium. Coronary artery calcification Normal mediastinum. Normal hilar regions. Normal enhanced and unenhanced pulmonary arteries. Normal aorta arch and descending thoracic aorta. Degenerative disease of the spine with scoliosis, convexity to the right. There is no demonstrated abnormality of the visualized upper abdomen. CT/Chest W/WO Contrast IMPRESSION: Minor posterior basilar atelectasis with minimal left lower lobe bulla, otherwise no acute cardiopulmonary disease. No aortic dissection or signs of pulmonary embolus is seen. Electronically Signed: Daniela Avery MD at 17:46 EST ,
[2023-03-14 19:40] LABS: Cholesterol 251 mg/dL (200); High Density Lipoprotein 40 mg/dL; Triglycerides 187 mg/dL; Very Low Density Lipoprotein 37 mg/dL (5-40)
[2023-03-14 19:54] LABS: Hemoglobin A1c 5.4 % (3.8-5.6)
[2023-03-14] MEDS: Atorvastatin Calcium 80 MG Tablet PO (21:18)
[2023-03-14] MEDS: Losartan Potassium 50 MG Tablet PO (21:18)
[2023-03-14] MEDS: Famotidine 20 MG Tablet PO (21:18)
[2023-03-14] MEDS: Metoprolol Tartrate 25 MG Tablet PO (21:18)
[2023-03-15] VITALS (27 sets, daily range): BP systolic 84–114; BP diastolic 49–75; PULSE 69–108; RESP 13–21; TEMP 35.8–37.1; O2SAT 96–100; BMI 32.1
[2023-03-15] MEDS: Magnesium Sulfate 2 GM in Dextrose 5%-Water (100mL Bag) 100 ML IV (00:55)
[2023-03-15 05:15] LABS: Hematocrit 38.3 % (40-54); Mean Corp Hgb Conc 33.9 g/dL (32-36); Mean Corpuscular Volume 85.3 fL (80-94); Mean Platelet Vol. 9.5 fl (6.2-12.0); Platelet Count 264 K/mm3 (150-450); RBC Distribution Width CV 12.4 % (11.6-14.6); RBC Distribution Width SD 38.4 fl (35.1-43.9); Red Blood Count 4.49 M/mm3 (4.6-6.2); White Blood Count 13.7 K/mm3 (4.4-11.0)
[2023-03-15 05:45] LABS: AST(SGOT) 456 U/L (15-37); Alanine Aminotransfer ALT/SGPT 96 U/L (16-61); Albumin, Serum 3.5 g/dL (3.2-5.0); Alkaline Phosphatase 69 U/L (45-117); Anion Gap 5 (5-15); BUN 11 mg/dL (7-18); BUN/Creat Ratio 9.5 RATIO (10-20); Calcium,Total 8.7 mg/dL (8.5-10.1); Chloride 107 mmol/L (98-107); Creatinine, Serum 1.16 mg/dL (0.70-1.30); EST Glomerular Filtration Rate 72 mL/min (>60); Est Glom Filt Rate - Afr Amer 88 mL/min (>60); Globulin 3.4 g/dL (2.2-4.2); Glucose 101 mg/dL (74-106); Magnesium 2.5 mg/dL (1.6-2.6); Phosphorus 3.5 mg/dL (2.5-4.9); Potassium 3.9 mmol/L (3.5-5.1); Protein, Total 6.9 g/dL (6.4-8.2); Sodium Level 138 mmol/L (136-145)
[2023-03-15] MEDS: Aspirin E.C. 81 MG Tablet PO (08:25)
--- NOTE | 2023-03-15 08:27 | PCM.PN.HOSP ---
Subjective Subjective Resting comfortably, had some chest pain overnight with back pain CTA of the chest was negative. EKG transiently shows left bundle branch block however currently doing well and denying any chest pain. Will await evaluation by cardiology Objective Data Objective Data Vital Signs: Vital Signs Temp Pulse Resp BP Pulse Ox O2 Del Method O2 Flow Rate 96.9 F L 79 16 110/75 99 Nasal Cannula 2 03/15/23 08:00 03/15/23 08:00 03/15/23 08:00 03/15/23 08:00 03/15/23 08:00 03/15/23 08:00 03/15/23 08:00 Oxygen Flow Rate (L/min) 2 Oxygen Delivery Method Nasal Cannula Weight: 229 lb 15.074 oz Body Mass Index (BMI) 32.1 Intake & Output: Intake and Output for Last 24 Hours 03/14/23 03/15/23 03/16/23 03:59 03:59 03:59 Intake Total 1344 / 1344 1600 / 1600 Output Total 1999 / 1999 405 / 405 Balance -656 / -656 1195 / 1195 Lab / Micro Data 03/15/23 05:00 03/15/23 05:00 Labs: Laboratory Results - last 24 hr 03/14/23 13:02: WBC 9.4, RBC 5.05, Hgb 14.7, Hct 43.0, MCV 85.1, MCH 29.1, MCHC 34.2, RDW Std Deviation 37.2, RDW Coeff of Shan 12.1, Plt Count 341, MPV 9.5, Immature Gran % (Auto) 0.300, Neut % (Auto) 52.9, Lymph % (Auto) 35.4, [place] % (Auto) 9.5, Eos % (Auto) 1.6, Baso % (Auto) 0.3, Absolute Neuts (auto) 5.0, Absolute Lymphs (auto) 3.33, Nucleated RBC % 0, PT 13.1, INR 1.0, APTT 30.7, Sodium 136, Potassium 4.1, Chloride 104, Carbon Dioxide 28.0, Anion Gap 4 L, BUN 11, Creatinine 1.16, Estim Creat Clear Calc 100.96, Est GFR (MDRD) Af Amer 88, Est GFR (MDRD) Non-Af 72, BUN/Creatinine Ratio 9.5 L, Glucose 98, Hemoglobin A1c 5.4, Calcium 9.9, Troponin I High Sens 2580 H*, Triglycerides 187, Cholesterol 251 H, LDL Cholesterol 174 H, VLDL Cholesterol 37, HDL Cholesterol 40 03/15/23 05:00: WBC 13.7 H, RBC 4.49 L, Hgb 13.0, Hct 38.3 L, MCV 85.3, MCH 29.0, MCHC 33.9, RDW Std Deviation 38.4, RDW Coeff of Shan 12.4, Plt Count 264, MPV 9.5, Sodium 138, Potassium 3.9, Chloride 107, Carbon Dioxide 26.0, Anion Gap 5, BUN 11, Creatinine 1.16, Estim Creat Clear Calc 99.50, Est GFR (MDRD) Af Amer 88, Est GFR (MDRD) Non-Af 72, BUN/Creatinine Ratio 9.5 L, Glucose 101, Calcium 8.7, Phosphorus 3.5 03/15/23 05:00: Phosphorus Cancelled, Magnesium 2.5, Total Bilirubin 1.20 H, AST 456 H, ALT 96 H, Alkaline Phosphatase 69, Total Protein 6.9, Albumin 3.5, Globulin 3.4, Albumin/Globulin Ratio 1.0 Radiography Diagnostic Testing: Radiology Impression Chest X-Ray 03/14/23 13:03 IMPRESSION: No acute thoracic pathology. Electronically Signed: Sid Cool MD at 13:36 EST , Chest CT 03/14/23 16:58 IMPRESSION: Minor posterior basilar atelectasis with minimal left lower lobe bulla, otherwise no acute cardiopulmonary disease. No aortic dissection or signs of pulmonary embolus is seen. Electronically Signed: Daniela Avery MD at 17:46 EST , Rhythm Strip Rhythm Strip: Sinus Rhythm Rate: 90 Ectopy: None Physical Exam Narrative General: Alert, Oriented x3, Cooperative, No apparent distress HEENT: Atraumatic, PERRLA, EOMI, Normocephalic Oral: Moist Mucosa Neck: Supple, No JVD Lungs: Clear to auscultation, Normal air movement, No rhonchi, No wheeze, No rales Cardiovascular: Regular rate, Regular Rhythm, Normal S1, Normal S2, No murmurs Abdomen: Soft, Non Tender, Non-Distended, No Hepato-splenomegaly Extremities: No edema, Capillary Refill Less than 3 Seconds Skin: No rashes, No breakdown Musculoskeletal: No Tenderness to Palpation of Joints or Extremities Neurological: Cranial nerves II-XII grossly intact, Motor Exam 5/5 strength throughout, Sensory exam intact to light touch and pain Psych/Mental Status: Normal Affect, Appropriate Const alert, oriented x3 and well nourished; Negative for no apparent distress, average body habitus or healthy appearing Constitutional Narrative: Uncomfortable appearing, middle-aged, white male, lying in bed, family at bedside, nursing at bedside, patient is complaining of chest pain and nausea with chest pain radiating to his back General Appearance: cooperative HEENT normocephalic, head/scalp atraumatic, hearing grossly normal bilaterally and moist oral mucous membranes Resp normal respiratory effort, no retractions, no use of accessory muscles and clear to auscultation bilaterally Auscultation: Negative for rales, rhonchi or wheezes Cardio regular rate, regular rhythm, S1 normal heart sound, S2 normal heart sound, no murmurs, no rub, no gallops and no clicks GI normal to inspection, nondistended, normoactive bowel sounds, soft to palpation and non-tender Extremity no clubbing, cyanosis or edema Extremity Narrative: Right radial artery with post catheterization compression device in place, appears to have good hand blood flow from ulnar artery Neuro oriented x3, moves all extremities and no focal motor deficits Speech: speech normal Psych Psych Narrative: Affect is flattened patient appears uncomfortable at this time Assessment & Plan Assessment/Plan (1) Acute ST elevation myocardial infarction (STEMI) of inferior wall: PLAN: Plan 1. Inferior wall STEMI status post stent/HTN/HLD/tobacco abuse ? Continue with antiplatelets ? Continue with Lipitor ? Appreciate cardiology's assistance ? Echo is pending ? LDL was 174 ? Discussed tobacco cessation 2. GERD ? Stable ? Continue with home medications DVT: Lovenox Charges/Coding Visit Charges Inpatient E&M: 97705 Subs Hosp L2
--- NOTE | 2023-03-15 08:51 | ECHOD_ITS ---
Version 2 Reason For Study: CAD/ASHD, STEMI Procedure This was a 2D Doppler, Color Flow transthoracic echocardiogram. Exam performed portable in ICU/CCU. Left Ventricle Normal LV size. Moderate concentric left ventricular hypertrophy. Left ventricular systolic function is normal. The estimated ejection fraction is 65 %. Stage 2 diastolic dysfunction. No regional wall motion abnormalities noted. Right Ventricle Normal RV size. Normal systolic function. Atria Normal left atrium. Normal right atrium. Mitral Valve Normal mitral valve. Tricuspid Valve Normal tricuspid valve. Aortic Valve Normal aortic valve. Pulmonic Valve Normal pulmonic valve. Great Vessels Normal aortic root. The pulmonary artery is normal size. Normal inferior vena cava. Pericardium/Pleural No pericardial effusion. MMode/2D Measurements & Calculations LVIDd: 4.9 cm IVSd: 1.5 cm Ao root diam: 3.3 cm LVIDs: 3.1 cm LVPWd: 1.4 cm LA dimension: 4.1 cm RVDd: 3.8 cm FS: 36.7 % LAV(MOD-bp): 72.6 ml LVAd ap4: 38.7 cm2 SV(MOD-sp4): 75.8 ml LAV(MOD-bp) Indexed: 32.6 ml/m2 LVLd ap4: 8.8 cm LAV(MOD-sp2): 81.6 ml EDV(MOD-sp4): 137.8 ml LAV(MOD-sp4): 66.8 ml EDV(sp4-el): 144.4 ml LVAs ap4: 23.2 cm2 LVLs ap4: 7.5 cm ESV(MOD-sp4): 62.0 ml ESV(sp4-el): 60.6 ml EF(MOD-sp4): 55.0 % EF(sp4-el): 58.0 % SV(sp4-el): 83.8 ml LA A4 area: 21.1 cm2 RA A4 area: 18.5 cm2 TAPSE: 2.5 cm Time Measurements MV dec time: 0.20 sec Doppler Measurements & Calculations MV E max rodriguez: 75.7 cm/sec Lat Peak E' Rodriguez: 12.0 cm/sec Med Peak E' Rodriguez: 9.7 cm/sec MV A max rodriguez: 51.8 cm/sec E/E' lat: 6.3 E/E' med: 7.8 MV E/A: 1.5 MV V2 max: 78.4 cm/sec MV P1/2t max rodriguez: 78.4 cm/sec Ao V2 max: 103.8 cm/sec MV max P.5 mmHg MV P1/2t: 60.0 msec Ao max P.3 mmHg MV V2 mean: 36.1 cm/sec MV dec slope: 382.8 cm/sec2 Ao V2 mean: 76.7 cm/sec MV mean P.67 mmHg Ao mean P.6 mmHg MV V2 VTI: 18.6 cm MVA(P1/2t): 3.7 cm2 Ao V2 VTI: 20.1 cm AV (velocity ratio): 1.0 LV V1 max: 99.9 cm/sec PA V2 max: 114.7 cm/sec LV V1 max P.0 mmHg PA V2 mean: 83.3 cm/sec LV V1 mean P.3 mmHg LV V1 mean: 71.7 cm/sec LV V1 VTI: 20.5 cm ECHO/Echo Complete Interpretation Summary Normal LV size. Left ventricular systolic function is normal. The estimated ejection fraction is 65 %. Moderate concentric left ventricular hypertrophy. Stage 2 diastolic dysfunction. Ordering Physician: Aleah Chris Referring Physician: Jaky Rocha Performed By: Cruz Baldwin RCS
[2023-03-15] MEDS: Enoxaparin 40 MG/0.4 ML Syringe SC (10:16)
[2023-03-15] MEDS: Famotidine 20 MG Tablet PO ×2 (10:16→22:15)
[2023-03-15] MEDS: Metoprolol Tartrate 25 MG Tablet PO ×2 (10:20→22:14)
[2023-03-15] MEDS: Losartan Potassium 50 MG Tablet PO ×2 (12:15→22:14)
[2023-03-15] MEDS: TICAGRELOR 90 MG TABLET PO ×2 (12:45→22:14)
--- NOTE | 2023-03-15 13:24 | PCM.CONS.C ---
HPI Consult Data Date of Consult: 03/15/23 HPI Narrative Reason for Consultation: STEMI/inferior/abnormal LFT HPI Narrative: WERO CARREON, is a 47 M who presents [facility] Medical History (Updated 03/14/23 @ 16:[address] Aleah Chris DO) Afib HLD (hyperlipidemia) HTN (hypertension) Tobacco abuse Home Medications famotidine 20 mg tablet 20 mg PO Q12H 03/14/23 [History Last Taken 03/14/23] losartan 100 mg tablet 100 mg PO DAILY 03/14/23 [History Last Taken 03/14/23] metoprolol tartrate 50 mg tablet 50 mg PO DAILY 03/14/23 [History Last Taken Unknown] rosuvastatin 5 mg tablet 5 mg PO DAILY 03/14/23 [History Last Taken Unknown] Allergy/AdvReac Type Severity Reaction Status Date / Time No Known Allergies Allergy Verified 03/14/23 12:59 Family History Father CAD (coronary artery disease) Surgical History H/O cardiac radiofrequency ablation Social History (Updated 03/14/23 @ 16:[address] Aleah Chris DO) household members: family housing: house Smoking Status: Former smoker Smokeless tobacco user: chewing tobacco alcohol intake: current alcohol intake frequency: holidays/special occasions only substance use type: does not use Physical Exam Cardio Cardio Narrative: 47-year-old patient seen evaluated in CCU Along with the nursing staff at bedside. Sitting out in a chair comfortable symptoms of back pain and chest pain resolved no further episodes Had an episode of wide-complex tachycardia last night has been stable clinically He was given 2 g of mag since then remains in normal sinus and stable hemodynamically Patient presented with STEMI/inferior With occluded large mid RCA successful PCI and stent using large drug-eluting stent 3.5 x 38 mm. To the distal to mid RCA Also patient has nonobstructive atherosclerosis involving the proximal left circumflex of around 30-40%, mid LAD had no obstructive atherosclerosis, D1?diagonal ostial lesions of around 50%. Ejection fraction by cardiac catheterization in the range of 40-45% Cardiac care plan recommendations; 1. I discussed in detail the cardiac care plan with the patient noted he had abnormal LFT with elevated liver enzymes therefore we discontinued atorvastatin Patient may benefit from outpatient Repatha and will start on Zetia. Patient to continue on dual antiplatelet therapy with Brilinta 90 mg twice daily in addition to low-dose aspirin Continue on beta-charles carvedilol He is on losartan. Based on his LV function by echocardiogram To consider Entresto, as an outpatient Currently he is tolerating Losartan and beta-charles metoprolol. He was at home on rosuvastatin and due to abnormal LFT statin will be discontinued Consider Repatha as an outpatient and to start on Zetia as an inpatient Echocardiogram in a.m. Will be seen and followed by the cardiac team. Also recommend event monitor as an outpatient for 2 weeks patient had episode of A-fib in the past and underwent ablation at [place]. I discussed the cardiac rehab which can be set up as an outpatient Risk Stratification Risk Stratification Applicable: Yes Age >/= 65: No >/= 3 CAD Risk Factors (HTN, HLD, DM, family hx of CAD, or current smoker): No Aspirin Use in the Past 7 Days: Yes Severe Angina (>/= episodes in 24 hours): Yes EKG ST Changes >/= 0.5mm: Yes Positive Cardiac Marker: No FARRAH Risk Stratification Score: 3 FARRAH % Risk: 13% Risk Objective Data Vital Signs: Vital Signs Temp Pulse Resp BP Pulse Ox O2 Del Method O2 Flow Rate 96.5 F L 75 15 94/66 97 Room Air 2 03/15/23 12:00 03/15/23 13:00 03/15/23 13:00 03/15/23 13:00 03/15/23 13:00 03/15/23 13:00 03/15/23 09:00 Oxygen Flow Rate (L/min) 2 Oxygen Delivery Method Room Air Weight: 229 lb 15.074 oz Body Mass Index (BMI) 32.1 Intake & Output: Intake and Output for Last 24 Hours 03/13/23 03/14/23 03/15/23 23:59 23:59 23:59 Intake Total 1240 / 1240 1704 / 1704 Output Total 1599 / 1999 805 / 805 Balance -360 / -760 899 / 899 Lab / Micro Data 03/15/23 05:00 03/15/23 05:00 Labs: Laboratory Results - last 24 hr 03/14/23 13:02: Sodium 136, Potassium 4.1, Chloride 104, Carbon Dioxide 28.0, Anion Gap 4 L, BUN 11, Creatinine 1.16, Estim Creat Clear Calc 100.96, Est GFR (MDRD) Af Amer 88, Est GFR (MDRD) Non-Af 72, BUN/Creatinine Ratio 9.5 L, Glucose 98, Hemoglobin A1c 5.4, Calcium 9.9, Troponin I High Sens 2580 H*, Triglycerides 187, Cholesterol 251 H, LDL Cholesterol 174 H, VLDL Cholesterol 37, HDL Cholesterol 40 03/15/23 05:00: WBC 13.7 H, RBC 4.49 L, Hgb 13.0, Hct 38.3 L, MCV 85.3, MCH 29.0, MCHC 33.9, RDW Std Deviation 38.4, RDW Coeff of Shan 12.4, Plt Count 264, MPV 9.5, Sodium 138, Potassium 3.9, Chloride 107, Carbon Dioxide 26.0, Anion Gap 5, BUN 11, Creatinine 1.16, Estim Creat Clear Calc 99.50, Est GFR (MDRD) Af Amer 88, Est GFR (MDRD) Non-Af 72, BUN/Creatinine Ratio 9.5 L, Glucose 101, Calcium 8.7, Phosphorus 3.5 03/15/23 05:00: Phosphorus Cancelled, Magnesium 2.5, Total Bilirubin 1.20 H, AST 456 H, ALT 96 H, Alkaline Phosphatase 69, Total Protein 6.9, Albumin 3.5, Globulin 3.4, Albumin/Globulin Ratio 1.0 Rhythm Strip Rhythm Strip: Sinus Rhythm Rate: 90 Ectopy: None Cardiology Labs/Tests 03/14/23 13:02: Sodium 136, Potassium 4.1, Chloride 104, Carbon Dioxide 28.0, Anion Gap 4 L, BUN 11, Creatinine 1.16, Est GFR (MDRD) Af Amer 88, Est GFR (MDRD) Non-Af 72, BUN/Creatinine Ratio 9.5 L, Glucose 98, Hemoglobin A1c 5.4, Calcium 9.9, Triglycerides 187, Cholesterol 251 H, LDL Cholesterol 174 H, VLDL Cholesterol 37, HDL Cholesterol 40 03/15/23 05:00: WBC 13.7 H, RBC 4.49 L, Hgb 13.0, Hct 38.3 L, MCV 85.3, MCH 29.0, MCHC 33.9, Plt Count 264, MPV 9.5, Sodium 138, Potassium 3.9, Chloride 107, Carbon Dioxide 26.0, Anion Gap 5, BUN 11, Creatinine 1.16, Est GFR (MDRD) Af Amer 88, Est GFR (MDRD) Non-Af 72, BUN/Creatinine Ratio 9.5 L, Glucose 101, Calcium 8.7, Phosphorus 3.5 03/15/23 05:00: Phosphorus Cancelled, Magnesium 2.5, Total Bilirubin 1.20 H Rhythm: EKG: ECHO: Stress Test: Cardiac Cath: PCI: CT Surgery: Holter monitor: EPS: PPM: CXR: Chest CT Scan: Radiography Diagnostic Testing: Radiology Impression Chest X-Ray 03/14/23 13:03 IMPRESSION: No acute thoracic pathology. Electronically Signed: Sid Cool MD at 13:36 EST , Chest CT 03/14/23 16:58 IMPRESSION: Minor posterior basilar atelectasis with minimal left lower lobe bulla, otherwise no acute cardiopulmonary disease. No aortic dissection or signs of pulmonary embolus is seen. Electronically Signed: Daniela Avery MD at 17:46 EST ,
[2023-03-16] VITALS (14 sets, daily range): BP systolic 85–122; BP diastolic 44–75; PULSE 70–87; RESP 16–22; TEMP 36.2–36.6; O2SAT 95–99; BMI 31.8
[2023-03-16 06:06] LABS: Absolute Lymphocyte Count 2.89 X10^3/uL (0.83-4.51); Absolute Neutrophil Count 7.2 X10^3/uL (2.0-7.7); Basophil# 0.03 X10^3/uL; Basophil% 0.3 % (0-1); Eosinophil# 0.15 X10^3/uL; Eosinophils% 1.3 % (0-5); Hematocrit 35.7 % (40-54); Hemoglobin 12.1 g/dL (13.0-16.5); Lymphocyte # 2.89 X10^3/ul (0.83-4.51); Lymphocyte % 24.2 % (19-41); Mean Corp Hgb Conc 33.9 g/dL (32-36); Mean Corpuscular Volume 85.6 fL (80-94); Mean Platelet Vol. 9.4 fl (6.2-12.0); Monocyte# 1.56 X10^3/uL; Monocyte% 13.1 % (0-10); NRBC Flagged by Analyzer 0 % (0-5); Neutrophil # 7.23 X10^3/uL (2.7-7.7); Neutrophil % 60.6 % (47-70); POSITIVE DIFFERENTIAL YES; Platelet Count 240 K/mm3 (150-450); RBC Distribution Width CV 12.5 % (11.6-14.6); RBC Distribution Width SD 38.6 fl (35.1-43.9); Red Blood Count 4.17 M/mm3 (4.6-6.2); White Blood Count 11.9 K/mm3 (4.4-11.0)
[2023-03-16 06:23] LABS: AST(SGOT) 214 U/L (15-37); Alanine Aminotransfer ALT/SGPT 65 U/L (16-61); Albumin, Serum 3.3 g/dL (3.2-5.0); Alkaline Phosphatase 68 U/L (45-117); Anion Gap 5 (5-15); BUN 15 mg/dL (7-18); BUN/Creat Ratio 13.8 RATIO (10-20); Bilirubin, Direct 0.27 mg/dL (0.00-0.30); Calcium,Total 8.8 mg/dL (8.5-10.1); Chloride 108 mmol/L (98-107); Creatinine, Serum 1.09 mg/dL (0.70-1.30); EST Glomerular Filtration Rate 78 mL/min (>60); Est Glom Filt Rate - Afr Amer 94 mL/min (>60); Estimated Creatinine Clearance 104.76 ml/min; Globulin 3.4 g/dL (2.2-4.2); Glucose 99 mg/dL (74-106); Magnesium 1.9 mg/dL (1.6-2.6); Potassium 3.7 mmol/L (3.5-5.1); Protein, Total 6.7 g/dL (6.4-8.2); Sodium Level 138 mmol/L (136-145)
[2023-03-16 07:04] LABS: Differential Indicated SCAN CRITERIA MET
--- NOTE | 2023-03-16 07:10 | PCM.PN.HOSP ---
Reason for Visit Reason for Visit: Diagnoses ST elevation (STEMI) myocardial infarction involving other coronary artery of inferior wall (03/14/23) Subjective Subjective Patient is a 47-year-old gentleman admitted with acute inferior wall ST segment elevation IA underwent emergency left heart catheterization with PCI with ALEENA to a 100% mid LAD lesion Objective Data Objective Data Vital Signs: Vital Signs Temp Pulse Resp BP Pulse Ox O2 Del Method O2 Flow Rate 97.2 F L 76 22 H 105/62 98 Room Air 2 03/16/23 04:00 03/16/23 06:00 03/16/23 06:00 03/16/23 06:00 03/16/23 06:00 03/16/23 06:00 03/15/23 09:00 Oxygen Flow Rate (L/min) 2 Oxygen Delivery Method Room Air Weight: 103.4 kg Body Mass Index (BMI) 31.8 Intake & Output: Intake and Output for Last 24 Hours 03/14/23 03/15/23 03/16/23 23:59 23:59 23:59 Intake Total 1240 / 1240 2224 / 2224 Output Total 1600 / 2000 1005 / 1005 1150 / 1150 Balance -360 / -760 1219 / 1219 -1150 / -1150 Lab / Micro Data 03/16/23 05:55 03/16/23 05:55 Labs: Laboratory Results - last 24 hr 03/16/23 05:55: WBC 11.9 H, RBC 4.17 L, Hgb 12.1 L, Hct 35.7 L, MCV 85.6, MCH 29.0, MCHC 33.9, RDW Std Deviation 38.6, RDW Coeff of Shan 12.5, Plt Count 240, MPV 9.4, Immature Gran % (Auto) 0.500, Neut % (Auto) 60.6, Lymph % (Auto) 24.2, [place] % (Auto) 13.1 H, Eos % (Auto) 1.3, Baso % (Auto) 0.3, Absolute Neuts (auto) 7.2, Absolute Lymphs (auto) 2.89, Nucleated RBC % 0, Sodium 138, Potassium 3.7, Chloride 108 H, Carbon Dioxide 25.0, Anion Gap 5, BUN 15, Creatinine 1.09, Estim Creat Clear Calc 104.76, Est GFR (MDRD) Af Amer 94, Est GFR (MDRD) Non-Af 78, BUN/Creatinine Ratio 13.8, Glucose 99, Calcium 8.8, Magnesium 1.9, Total Bilirubin 1.30 H, Direct Bilirubin 0.27, AST 214 H, ALT 65 H, Alkaline Phosphatase 68, Total Protein 6.7, Albumin 3.3, Globulin 3.4 Rhythm Strip Rhythm Strip: Sinus Rhythm Rate: 90 Ectopy: None Physical Exam Narrative GENERAL: cooperative HEENT: Atraumatic; normocephalic EYES; Anicteric, Normal Conjunctiva NECK; supple, normal thyroid, RESPIRATORY: Diminished to auscultation CARDIOVASCULAR: Regular S1 S2, GI: soft, normoactive bowel sounds, : No Renal angle tenderness; EXTREMITIES: No edema, no clubbing, MUSCULOSKELETAL: no muscle wasting NEURO: Awake; no lateralizing signs. SKIN: No Rash PSYCH; Flat affect Assessment & Plan Assessment/Plan (1) Acute ST elevation myocardial infarction (STEMI) of inferior wall: PLAN: Plan Patient is a 47-year-old gentleman admitted with acute inferior wall ST segment elevation IA underwent emergency left heart catheterization with PCI with ALEENA to a 100% mid LAD lesion 1. Acute inferior wall ST segment elevation IA ? Patient underwent emergency left heart catheterization with PCI with ALEENA to 100% mid LAD lesion. Subsequently initiated on guideline directed medical therapy 2. Hypertension - Blood pressure controlled, home medications continued with dose adjustment as needed 3. Dyslipidemia ? Patient started on high-dose statin therapy 4. GERD ? Patient is on famotidine 5. Class I obesity with BMI of 32 ? Complicating care weight loss advised 6. DVT prophylaxis SC Lovenox Time spent in the patient's overall evaluation,decision-making process, review of diagnostic data, adjustment of management, discussion with other providers, nursing nursing and ancillary staff involved in patient's care documentation, 40 . Minutes Charges/Coding Visit Charges Inpatient E&M: 26111 Subs Hosp L2
[2023-03-16] MEDS: Aspirin E.C. 81 MG Tablet PO (08:19)
[2023-03-16] MEDS: TICAGRELOR 90 MG TABLET PO (08:20)
--- NOTE | 2023-03-16 08:42 | PN.CARD_ITS ---
Subjective Subjective Patient reports that he is doing very well this morning. He has had no recurrence of his anginal symptoms denies any PND orthopnea. The patient denies any significant alcohol use he occasionally drinks in the summertime but has had none recently. He had recently and that within the last 6 weeks started pravastatin and his LFTs were elevated on admission. His total bilirubin was also elevated. The patient's LFTs have decreased significantly since admission. Total bilirubin remains elevated. He denies any significant occupational exposures. The patient had been initiated on atorvastatin on admission this was discontinued. Objective Data Vital Signs: Vital Signs Temp Pulse Resp BP Pulse Ox O2 Del Method O2 Flow Rate 97.2 F L 76 22 H 105/62 97 Room Air 2 03/16/23 04:00 03/16/23 06:00 03/16/23 06:00 03/16/23 06:00 03/16/23 08:00 03/16/23 08:00 03/15/23 09:00 Oxygen Flow Rate (L/min) 2 Oxygen Delivery Method Room Air Weight: 227 lb 15.327 oz Body Mass Index (BMI) 31.8 Intake & Output: Intake and Output for Last 24 Hours 03/14/23 03/15/23 03/16/23 23:59 23:59 23:59 Intake Total 1240 / 1240 2224 / 2224 Output Total 1600 / 2000 1005 / 1005 1150 / 1150 Balance -360 / -760 1219 / 1219 -1150 / -1150 Lab / Micro Data Attestation: I reviewed the patient's lab results. 03/16/23 05:55 03/16/23 05:55 Labs: Laboratory Results - last 24 hr 03/16/23 05:55: WBC 11.9 H, RBC 4.17 L, Hgb 12.1 L, Hct 35.7 L, MCV 85.6, MCH 29.0, MCHC 33.9, RDW Std Deviation 38.6, RDW Coeff of Shan 12.5, Plt Count 240, MPV 9.4, Immature Gran % (Auto) 0.500, Neut % (Auto) 60.6, Lymph % (Auto) 24.2, [place] % (Auto) 13.1 H, Eos % (Auto) 1.3, Baso % (Auto) 0.3, Absolute Neuts (auto) 7.2, Absolute Lymphs (auto) 2.89, Nucleated RBC % 0, Diff Path Review May foll, Sodium 138, Potassium 3.7, Chloride 108 H, Carbon Dioxide 25.0, Anion Gap 5, BUN 15, Creatinine 1.09, Estim Creat Clear Calc 104.76, Est GFR (MDRD) Af Amer 94, Est GFR (MDRD) Non-Af 78, BUN/Creatinine Ratio 13.8, Glucose 99, Calcium 8.8, Magnesium 1.9, Total Bilirubin 1.30 H, Direct Bilirubin 0.27, AST 214 H, ALT 65 H, Alkaline Phosphatase 68, Total Protein 6.7, Albumin 3.3, Globulin 3.4 Rhythm Strip Rhythm Strip: Sinus Rhythm Rate: 90 Ectopy: None Cardiology Labs/Tests 03/16/23 05:55: WBC 11.9 H, RBC 4.17 L, Hgb 12.1 L, Hct 35.7 L, MCV 85.6, MCH 29.0, MCHC 33.9, Plt Count 240, MPV 9.4, Immature Gran % (Auto) 0.500, Neut % (Auto) 60.6, Lymph % (Auto) 24.2, [place] % (Auto) 13.1 H, Eos % (Auto) 1.3, Baso % (Auto) 0.3, Absolute Neuts (auto) 7.2, Nucleated RBC % 0, Sodium 138, Potassium 3.7, Chloride 108 H, Carbon Dioxide 25.0, Anion Gap 5, BUN 15, Creatinine 1.09, Est GFR (MDRD) Af Amer 94, Est GFR (MDRD) Non-Af 78, BUN/Creatinine Ratio 13.8, Glucose 99, Calcium 8.8, Magnesium 1.9, Total Bilirubin 1.30 H, Direct Bilirubin 0.27 Rhythm: EKG: ECHO: Stress Test: Cardiac Cath: PCI: CT Surgery: Holter monitor: EPS: PPM: CXR: Chest CT Scan: Physical Exam Const alert, oriented x3 and no apparent distress HEENT normocephalic Neck full ROM, no JVD and no carotid bruits Chest inspection of chest normal Resp normal respiratory effort Auscultation: Negative for rales, rhonchi or wheezes Cardio regular rate, regular rhythm, no murmurs, no rub and no gallops Jugular Venous Distention: JVD GI normal to inspection, nondistended, normoactive bowel sounds Extremity normal to inspection Skin no rashes or lesions noted Neuro Neuro Narrative: Alert and oriented x 3. Psych Memory / Cognition: cognition grossly intact Assessment & Plan Assessment/Plan (1) Acute ST elevation myocardial infarction (STEMI) of inferior wall: PLAN: Patient is asymptomatic at this time. I discussed with him the mandatory nature of continuing dual antiplatelet therapy for 1 year. I also went over education around secondary risk factor modifications and the importance of cardiac rehab. I will try to get back to his room to discuss this with his around lunchtime before he is discharged today. That should patient to be continued on his current medical regiment we will hold atorvastatin. The patient should be followed up in our office at the [facility] in 7 to 10 days. At that time we will reevaluate his medical regimen. The patient's echo was pending at the time of this discharge. If his left ventricular ejection fraction is less than 40% a more aggressive medical regiment will be instituted when he is evaluated in our office in 7 to 10 days. (2) HLD (hyperlipidemia): PLAN: The patient was previously on pravastatin prior to admission. His LFTs were elevated. Total bili was also elevated. He has no occupational or significant exposure. I would recommend he have his LFTs reevaluated with fasting lipids in 7 to 10 days just prior to his office visit. At that time if his LFTs are back to baseline/normal we will rechallenge him with rosuvastatin 10 mg daily. We would recheck his LFTs in 1 to 2 weeks following that rechallenge. PLAN: Plan From a cardiovascular standpoint the patient can be discharged to home later today. The patient should call the [facility] to schedule his follow- up appointment with either Dr. Cartagena or one of our advanced practitioners. He should be seen in 7 to 10 days. I did put in an order for him to get lab work done in a week. Charges/Coding Visit Charges Inpatient E&M: 76805 Subs Hosp L2
--- NOTE | 2023-03-16 08:54 | CRPHASE1 ---
Patient Communication Patient Information PHII Cardiac Rehab Discussed with Patient:: Yes Guide to Cardiac Rehab Given to Patient:: Yes Cardiac Rehab Facility Choice List Given to Patient:: Yes Communication to Cardiac Rehab Choice Program [facility] CR PHII:: Communication Given to CR Vice President Quality Assurance:: Jaky Rocha Refer Phase II Cardiac Rehab:: Yes Medical/Surgical History Medical History SD:: Yes Angina:: Yes CAD:: Yes Congestive Heart Failure: Cardiomyopathy:: No Valve Disease/Replacement:: No Diabetes:: No Hypertension:: Yes CVA/TIA: Cardiac Rehabilitation Info Program Information Cardiac Rehabilitation Program Information: Cardiac Rehab The cardiac rehab team at [facility] consists of highly skilled exercise physiologists, nurses, respiratory therapists and physicians working together with you. Our purpose is to help you have a full recovery and achieve the goals you set for yourself. Over the years many of our patients have returned to activities they assumed they would never do again! We can help restore your confidence and motivation to make lifestyle changes that can have a significant impact on your health and quality of life! We can help answer questions and concerns you may have about exercise, lifestyle, medications, diet, stress and anxiety which are common following a hospitalization. WE monitor ECG and vital signs during exercise and discuss your progress with you and report to your physician(s). Cardiac Rehab is proven to help reduce readmissions, improve functional capacity and lower recurrence of problems with your heart. Our Cardiac Rehab program is Certified by the [place] [employer] Pulmonary [employer] (AACVPR) and Accredited by the [place] [employer] through our [facility]. You can contact us at . We invite you to call us with your questions or to get started in our program. If you have other questions or concerns be sure to ask your physician/provider during your follow-up visit. WE look forward to seeing you!
--- NOTE | 2023-03-16 08:56 | CRPH1.INSTRU ---
General Education Discussed with Patient CAD and cardiac anatomy and function:: Patient communicates acknowledgment Explanation of diagnoses and procedures:: Patient communicates acknowledgment Sign/Symptoms of DE:: Patient communicates acknowledgment Antiplatelet therapy: Patient communicates acknowledgment Proper use of NTG-SL: Patient communicates acknowledgment Emergency procedures and activation of EMS: Patient communicates acknowledgment Compliance of all prescribed medications: Patient communicates acknowledgment Smoking Risk Factors Patient Nicotine/Smoking Risk Factors Are:: Non-smoker Dyslipidemia Risk Factors Patient Dyslipidemia Risk Factors Are:: Total Cholesterol Recommendations Recommendations Include:: Lipid profile not available Response Code Dyslipidemia Response Code:: Patient communicates acknowledgment Overweight/Obesity Risk Factors Patient Overweight/Obesity Risk Factors Are:: Overweight = 26-29 Response Code Overweight/Obesity:: Patient communicates acknowledgment Hypertension Recommendations Recommendations Include:: Maintain BP <130/85 and Moderation of ETOH Response Code Hypertension:: Patient communicates acknowledgment Heart Disease Risk Factors Patient Heart Disease Risk Factors Are:: Family history of heart disease < 65 years old and Previous cardiac event Recommendations Recommendations Include:: Educated family members of their risk Response Code Heart Disease Response Code:: Patient communicates acknowledgment Diabetes Risk Factors Patient Diabetes Risk Factors Are:: No documented hx of diabetes Metabolic Syndrome Risk Factors Patient Metabolic Syndrome Risk Factors Are [3 of 5]:: Waist circumference > 35 [female] or 40 [male] Response Code Metabolic Syndrome Response Code:: Patient communicates acknowledgment Sedentary Recommendations Recommendations Include:: Benefits of regular exercise Response Code Sedentary Response Code:: Patient communicates acknowledgment Stress Recommendations Recommendations Include:: Identification of stressors, and assessment of coping skills and Stress management techniques Response Code Stress Response Code:: Patient communicates acknowledgment
[2023-03-16] MEDS: Losartan Potassium 50 MG Tablet PO (09:34)
[2023-03-16] MEDS: Metoprolol Tartrate 25 MG Tablet PO (09:34)
[2023-03-16] MEDS: Famotidine 20 MG Tablet PO (09:35)
[2023-03-16] MEDS: Enoxaparin 40 MG/0.4 ML Syringe SC (09:35)
--- NOTE | 2023-03-16 12:08 | DS.PCM_ITS ---
Providers Date of Admission: 03/14/23 Date of Discharge: 03/16/23 Primary Care Physician: Nanette Zimmer PA-C Reason For Visit: STEMI Diagnosis Discharge Diagnosis (1) Acute ST elevation myocardial infarction (STEMI) of inferior wall: Status: Acute Code(s): I21.19 - ST elevation (STEMI) myocardial infarction involving other coronary artery of inferior wall (2) HLD (hyperlipidemia): Status: Acute Code(s): E78.5 - Hyperlipidemia, unspecified Plan Patient is a 47-year-old gentleman admitted with acute inferior wall ST segment elevation [place] underwent emergency left heart catheterization with PCI with ALEENA to a 100% mid LAD lesion 1. Acute inferior wall ST segment elevation [place] ? Patient underwent emergency left heart catheterization with PCI with ALEENA to 100% mid LAD lesion. Subsequently initiated on guideline directed medical therapy 2. Hypertension - Blood pressure controlled, home medications continued with dose adjustment as needed 3. Dyslipidemia ? Patient was on rosuvastatin this was held given elevated LFTs. Plan is for patient to follow-up with cardiology for repeat LFTs and if improved patient will be challenged with rosuvastatin 4. GERD ? Patient is on famotidine 5. Class I obesity with BMI of 32 ? Complicating care weight loss advised 6. DVT prophylaxis SC Lovenox Time spent in the patient's overall evaluation,decision-making process, review of diagnostic data, adjustment of management, discussion with other providers, nursing nursing and ancillary staff involved in patient's care documentation, 40 . Minutes Medications at Discharge Home Medications famotidine 20 mg tablet 20 mg PO Q12H 03/14/23 losartan 100 mg tablet 100 mg PO DAILY 03/14/23 rosuvastatin 5 mg tablet 5 mg PO DAILY 03/14/23 aspirin 81 mg tablet,delayed release 81 mg PO DAILY@0800 #90 tabs 03/16/23 metoprolol tartrate 25 mg tablet 25 mg PO BID #180 tabs 03/16/23 ticagrelor 90 mg tablet (Brilinta) 90 mg PO BID #180 tabs 03/16/23 Hospital Course Summary of Care Provided Minutes Spent on Discharge: 40 Physical Exam Narrative GENERAL: cooperative HEENT: Atraumatic; normocephalic EYES; Anicteric, Normal Conjunctiva NECK; supple, normal thyroid, RESPIRATORY: Diminished to auscultation CARDIOVASCULAR: Regular S1 S2, GI: soft, normoactive bowel sounds, : No Renal angle tenderness; EXTREMITIES: No edema, no clubbing, MUSCULOSKELETAL: no muscle wasting NEURO: Awake; no lateralizing signs. SKIN: No Rash PSYCH; Flat affect Weight / BMI Weight Weight: 103.4 kg Body Mass Index (BMI) 31.8 ABG / Lab / Microbiology Data 03/16/23 05:55 03/16/23 05:55 Laboratory: Laboratory Results - last 24 hr 03/16/23 05:55: WBC 11.9 H, RBC 4.17 L, Hgb 12.1 L, Hct 35.7 L, MCV 85.6, MCH 29.0, MCHC 33.9, RDW Std Deviation 38.6, RDW Coeff of Shan 12.5, Plt Count 240, MPV 9.4, Immature Gran % (Auto) 0.500, Neut % (Auto) 60.6, Lymph % (Auto) 24.2, [place] % (Auto) 13.1 H, Eos % (Auto) 1.3, Baso % (Auto) 0.3, Absolute Neuts (auto) 7.2, Absolute Lymphs (auto) 2.89, Nucleated RBC % 0, Diff Path Review June, Sodium 138, Potassium 3.7, Chloride 108 H, Carbon Dioxide 25.0, Anion Gap 5, BUN 15, Creatinine 1.09, Estim Creat Clear Calc 104.76, Est GFR (MDRD) Af Amer 94, Est GFR (MDRD) Non-Af 78, BUN/Creatinine Ratio 13.8, Glucose 99, Calcium 8.8, Magnesium 1.9, Total Bilirubin 1.30 H, Direct Bilirubin 0.27, AST 214 H, ALT 65 H, Alkaline Phosphatase 68, Total Protein 6.7, Albumin 3.3, Globulin 3.4 D/C Instructions Discharge Diet: Low fat / Low cholesterol Discharge Activity: Return to Normal Activity Call your doctor if you observe: Fever of 101 or Higher, Shortness of breath, Fainting spells and Chest pain Meaningful Use Info Meaningful Use Diagnoses (Choose all that apply): AMI AMI/Post PCI/Angioplasty Aspirin given w/in 24hrs of arrival?: Yes ASA at discharge?: Yes Antiplatelet Therapy at Discharge:: Yes Statins at discharge?: No Reason statins not ordered:: Allergy (Abnormal LFTs) Mata/ARB at discharge?: Yes Beta Daphnie at discharge?: Yes Done w/ Acute [place] measure.: Yes Documented LVEF (%): 40 Discharge Plan Admission Admit Date/Time: 03/14/23 14:42 Attending Provider: Jan Rey Primary Care Provider: Nanette Zimmer Consulting Providers: Jaky Rocha; Kingston Figueroa Discharge Orders/Prescriptions Prescriptions: New aspirin 81 mg Tablet,Delayed Release (Dr/Ec) 81 mg PO DAILY@0800 Qty: 90 0RF Brilinta 90 mg Tablet 90 mg PO BID Qty: 180 0RF metoprolol tartrate 25 mg Tablet 25 mg PO BID Qty: 180 0RF Continued famotidine 20 mg tablet 20 mg PO Q12H Patient Comments: TAKE ONE TABLET BY MOUTH TWICE DAILY NEEDED losartan 100 mg tablet 100 mg PO DAILY Patient Comments: TAKE ONE TABLET BY MOUTH EVERY DAY Held rosuvastatin 5 mg tablet 5 mg PO DAILY Hold Instructions: Resume on 04/14/23. Resume when okayed by cardiology after obtaining LFTs Patient Comments: TAKE ONE TABLET BY MOUTH DAILY Discontinued metoprolol tartrate 50 mg tablet 50 mg PO DAILY Referrals / Follow Up: Olu Cartagena MD [Med Staff - Active Staff] - Within 2 Weeks (For repeat LFTs and probable resumption of rosuvastatin) Nanette Zimmer PA-C [Primary Care Provider] - Within 2 Weeks Disposition Disposition (needs filled in before D/C Order can be placed): Home, Self Care Charges/Coding Visit Charges Inpatient E&M: 53102 Disch Hosp >30min
--- NOTE | 2023-03-16 12:25 | CASEMGMT ---
Addendum entered by Nikki Rodriguez 03/16/23 12:53: Pt questions timing of metoprolol and losartan. Updated pt nurse who will check with robot operator. Original Note: RN JAILYN Assessment: Face to Face with pt for initial transition planning/care coordination assessment. RN CM introduced self and role at [facility], pt voices understanding and consents to assessment. Pt is A&O x4 and answers all questions appropriately at this time. Pt lying in bed in no distress with at bedside. Care providers, pharmacy, and demographics verified/updated. Admitting Dx:STEMI PCP:Nanette VILLARREAL Specialists:Denies Preferred Pharmacy:[facility] [place]- meds were called into [facility] and pt is agreeable to this. TC to pharmacy and [employer] savings card applied. Requested meds be delivered to room. Insurance:[employer] Pres[employer] Benefit: yes LNOK:Dedra Izquierdo, Living Arrangements: Pt lives with and 3 children in a single story home with 2 steps to enter. Pt reports he is I in ADL's and denies concerns at home. Transportation: Pt drives self and denies concerns with transportation. DME:Denies HHC/SNF:Denies hx of Pt states no concerns with going home at time of dc. Discussed cardiac rehab and pt has booklet with phone numbers to call. Pt states no further concerns/needs. CM to follow. Advised pt to ask CM if any further question/concerns/needs arise, voices understanding. Pt Goal:Home Plan:Home
[2023-03-16 14:44] LABS: ACT Activated Clotting Time 212 sec (74-137)
[2023-03-16 14:44] LABS: ACT Activated Clotting Time 271 sec (74-137)
[2023-03-17 10:19] LABS: Pathologist Review Reviewed
== END 2023-03-16 13:33 | disposition home or self-care (01) | DRG 322 ==
LOC: ED 13:28 → ICU 14:50
PROVIDERS: Family Medicine; Internal Medicine; Admitting Provider Internal Medicine Interventional Cardiology; Emergency Provider Emergency Medicine; PCP Family Medicine; Referring Provider Internal Medicine Interventional Cardiology; Visit Provider Internal Medicine
DX: I21.19 ST elevation (STEMI) myocardial infarction involving other coronary artery of inferior wall (principal); E66.9 Obesity, unspecified; I10 Essential (primary) hypertension; E78.5 Hyperlipidemia, unspecified; I44.7 Left bundle-branch block, unspecified; K21.9 Gastro-esophageal reflux disease without esophagitis; Z79.82 Long term (current) use of aspirin; Z87.891 Personal history of nicotine dependence; Z95.5 Presence of coronary angioplasty implant and graft; Z68.31 Body mass index [BMI] 31.0-31.9, adult
CPT/HCPCS: 71045; 71270; 80048; 80053; 80061; 80076; 83036; 83735; 84100; 84484; 85025; 85027; 85347; 85610; 85730; 92941; 93005; 93306; 93458; 97802; 99285; J7030; Q9957; Q9967; A4216; C1725; C1769; C1874; C1887; C1894; C9606; J2405

== ENCOUNTER → 2023-03-19 | Outpatient (CLI) | payer BC, SELFPAY ==
[2023-03-19 11:39] LABS: AST(SGOT) 41 U/L (15-37); Alanine Aminotransfer ALT/SGPT 39 U/L (16-61); Albumin, Serum 3.7 g/dL (3.2-5.0); Alkaline Phosphatase 83 U/L (45-117); Bilirubin, Direct 0.21 mg/dL (0.00-0.30); Globulin 4.2 g/dL (2.2-4.2); Protein, Total 7.9 g/dL (6.4-8.2)
== END | disposition home or self-care (01) ==
LOC: LAB 10:27
PROVIDERS: PCP Family Medicine; Referring Provider Internal Medicine Cardiovascular Disease; Visit Provider Internal Medicine Cardiovascular Disease
DX: R79.89 Other specified abnormal findings of blood chemistry (principal)
CPT/HCPCS: 36415; 80076

== ENCOUNTER 2023-03-27 16:36 | Observation (INO) | payer BC, SELFPAY ==
[2023-03-27 16:38] VITALS: BP 148/90; PULSE 93; RESP 16; TEMP 36.4; O2SAT 94; BMI 32.0
--- NOTE | 2023-03-27 17:00 | RAD_ITS ---
STUDY: X-RAY CHEST REASON FOR EXAM: Male, 47 years old. chest pain TECHNIQUE: Single AP portable view of the chest. COMPARISON: 03/14/2023 FINDINGS: The lungs are clear and expanded. There is no demonstrated pleural abnormality. Normal size heart. Normal mediastinum and angélica. Normal visualized pulmonary arteries. Normal visualized aortic arch and descending thoracic aorta. There is a dextroscoliosis of the thoracic spine. Normal visualized ribs, clavicles, and shoulders. There is no demonstrated abnormality of the visualized soft tissue structures of the upper abdomen. RAD/Chest 1 View (Portable) IMPRESSION: No active disease. Electronically Signed: Sterling Medina MD at 17:30 EST ,
[2023-03-27 17:05] VITALS: O2SAT 98
[2023-03-27 17:06] LABS: Absolute Lymphocyte Count 2.93 X10^3/uL (0.83-4.51); Absolute Neutrophil Count 4.6 X10^3/uL (2.0-7.7); Basophil# 0.04 X10^3/uL; Basophil% 0.5 % (0-1); Eosinophils% 2.3 % (0-5); Hematocrit 38.3 % (40-54); Hemoglobin 12.5 g/dL (13.0-16.5); Lymphocyte # 2.93 X10^3/ul (0.83-4.51); Lymphocyte % 34.1 % (19-41); Mean Corp Hgb Conc 32.6 g/dL (32-36); Mean Corpuscular Hgb 28.7 pg (27.0-32.0); Mean Corpuscular Volume 87.8 fL (80-94); Mean Platelet Vol. 9.6 fl (6.2-12.0); Monocyte# 0.78 X10^3/uL; Monocyte% 9.1 % (0-10); NRBC Flagged by Analyzer 0 % (0-5); Neutrophil # 4.62 X10^3/uL (2.7-7.7); Neutrophil % 53.8 % (47-70); Platelet Count 375 K/mm3 (150-450); RBC Distribution Width CV 12.1 % (11.6-14.6); RBC Distribution Width SD 39.1 fl (35.1-43.9); Red Blood Count 4.36 M/mm3 (4.6-6.2); White Blood Count 8.6 K/mm3 (4.4-11.0)
--- NOTE | 2023-03-27 17:15 | EDS_ITS ---
HPI <FRANCOIS Fuchs - Last Filed: 03/27/23 18:13> History of Present Illness Chief Complaint: Chest Pain Narrative Narrative: Patient is a 47-year-old male with history of hypertension, hyperlipidemia, CAD with a recent posterior NH on March 14, 2023. Patient was admitted here, patient does have a stent in the RCA that was placed. Patient is now currently on Brilinta, metoprolol, losartan and a baby aspirin. Patient states today at around 3 PM, the patient was at home, had a sharp stabbing pain to the left neck, then had pain from his left armpit straight across to his right armpit which lasted for 1 minute. Patient has not had any more pain, he arrives here asymptomatic. Secondary to his recent NH, they referred him here for evaluation. Patient has been taking all of his medications and following up outpatient. [facility] <FRANCOIS Fuchs - Last Filed: 03/27/23 18:13> [facility] Medical History Acute ST elevation myocardial infarction (STEMI) of inferior wall (03/14/23) Afib Atherosclerotic heart disease Elevated LFTs HLD (hyperlipidemia) HTN (hypertension) Tobacco abuse Home Medications aspirin 81 mg tablet,delayed release 81 mg PO DAILY@0800 #90 tabs 03/16/23 [Rx Last Taken Unknown] ticagrelor 90 mg tablet (Brilinta) 90 mg PO BID #180 tabs 03/16/23 [Rx Last Taken Unknown] losartan 50 mg tablet 50 mg PO DAILY this is a dose decrease #90 tabs 03/23/23 [Rx Last Taken Unknown] famotidine 20 mg tablet 20 mg PO DAILY 03/27/23 [History Last Taken Unknown] metoprolol succinate 25 mg tablet,extended release 24 hr 12.5 mg (1/2 x 25 mg) PO DAILY #90 tabs 03/27/23 [Rx Last Taken Unknown] Allergy/AdvReac Type Severity Reaction Status Date / Time No Known Allergies Allergy Verified 03/27/23 10:26 Family History Father CAD (coronary artery disease) Surgical History H/O cardiac radiofrequency ablation History of coronary artery stent placement Stented coronary artery (03/14/23) Social History household members: family housing: house Smoking Status: Former smoker Smokeless tobacco user: chewing tobacco how long ago did patient quit smokin alcohol intake: current alcohol intake frequency: holidays/special occasions only substance use type: does not use caffeine: No ROS <FRANCOIS Fuchs - Last Filed: 03/27/23 18:13> ROS ED ROS Narrative Constitutional: Negative for fever, chills, weight loss, weakness Eyes: Negative for vision loss, vision change, double vision ENT: Negative for any sore throat, ear pain, congestion Cardiovascular: Negative for any palpitations. Positive for chest pain, chest tightness, left neck pain Respiratory: Negative for any cough, sputum production, hemoptysis, dyspnea, dyspnea on exertion, orthopnea Gastrointestinal: Negative for any abdominal pain, nausea, vomiting, diarrhea, constipation, blood in stool, blood in vomit : Negative for any urinary frequency, dysuria, retention, blood in urine Muscle skeletal: Negative for any myalgias, arthralgias, neck pain, back pain Neurological: Negative for any headache, syncope, paresthesias, dizziness Skin: Negative for any rashes, lumps, itching, abrasions, lacerations Psychiatric: Negative for any depression, anxiety, stress, suicidal ideation, homicidal ideation Hematologic: Negative for any easy bruising, excessive bruising, easy bleeding Allergies: Negative for any eczema, hives, rash EXAM <FRANCOIS Fuchs - Last Filed: 03/27/23 18:13> Physical Exam Narrative Exam Narrative: Vital signs reviewed. Vital signs are stable, patient is in no distress, 0 pain HEET: Head normocephalic atraumatic, TMs clear bilaterally. Posterior pharynx is clear, moist mucous membranes. Nares clear bilaterally. Neck: Supple with no lymphadenopathy or tenderness. No signs of meningismus. Cardiac: Regular rate, I do hear an extra beat, no murmurs gallops or rubs, equal peripheral pulses bilaterally. Respiratory: Lungs clear to auscultation bilaterally. No chest tenderness. Abdomen: Soft, nontender, nondistended. No abdominal bruit or pulsatile masses. No hepatosplenomegaly Extremities: No peripheral edema, no signs of gross trauma or deformity. Active full range of motion of all extremities. Neuro: Cranial nerves II through XII intact, no focal neurological deficits. Skin: Clean dry and intact with no rash, purpura, petechiae, vesicles or pustules. Backs/flank: No CVA tenderness, no midline spinal tenderness, no deformity. Psych: Normal mood and affect. No SI, HI or acute psychosis. Const Vital Signs: 03/27/23 16:38 03/27/23 17:05 03/27/23 18:00 Temperature 97.6 F L Temperature Source Temporal Pulse Rate 93 84 Respiratory Rate 16 16 Blood Pressure 148/90 H 124/72 H Blood Pressure Mean 109 89 Pulse Ox 94 98 97 Oxygen Delivery Method Room Air Room Air Room Air <Dr. René Child MD - Last Filed: 03/27/23 17:49> Physical Exam Const Vital Signs: 03/27/23 16:38 03/27/23 17:05 03/27/23 18:00 Temperature 97.6 F L Temperature Source Temporal Pulse Rate 93 84 Respiratory Rate 16 16 Blood Pressure 148/90 H 124/72 H Blood Pressure Mean 109 89 Pulse Ox 94 98 97 Oxygen Delivery Method Room Air Room Air Room Air MDM <FRANCOIS Fuchs - Last Filed: 03/27/23 18:13> [facility] Lab Data Labs: Laboratory Results - last 24 hr 03/27/23 16:45 WBC 8.6 RBC 4.36 L Hgb 12.5 L Hct 38.3 L MCV 87.8 MCH 28.7 MCHC 32.6 RDW Std Deviation 39.1 RDW Coeff of Shan 12.1 Plt Count 375 MPV 9.6 Immature Gran % (Auto) 0.200 Neut % (Auto) 53.8 Lymph % (Auto) 34.1 [place] % (Auto) 9.1 Eos % (Auto) 2.3 Baso % (Auto) 0.5 Absolute Neuts (auto) 4.6 Absolute Lymphs (auto) 2.93 Nucleated RBC % 0 Sodium 140 Potassium 4.0 Chloride 109 H Carbon Dioxide 28.0 Anion Gap 3 L BUN 22 H Creatinine 1.22 Estim Creat Clear Calc 93.90 Est GFR (MDRD) Af Amer 83 Est GFR (MDRD) Non-Af 68 BUN/Creatinine Ratio 18.0 Glucose 126 H Calcium 8.9 Troponin I High Sens 253 H* Radiography Diagnostic Testing: Clinical Impression(s) from Imaging Studies Chest X-Ray 03/27/23 17:00 IMPRESSION: No active disease. Electronically Signed: Sterling Medina MD at 17:30 EST , EKG Sinus rhythm with frequent PVCs: Attestation: I personally reviewed and interpreted this EKG as follows: Comments: Sinus rhythm with frequent premature ventricular complexes, rate of 95 bpm, MO interval 162 ms, QRS duration 82 ms, no acute ST elevation. No acute infarct noted. Treatment and Re-Evaluation :: Patient appears generally well, patient appears nontoxic, vital signs are stable. Presenting to the emergency department for a 1 minute neck pain, chest pain from left axilla to right axilla around 3 PM today. Secondary to patient having recent NH and stent placement on March 14, 2023, they referred him to the emergency department. Differential diagnosis includes failure of the stent, ACS, NH, muscle skeletal pain, unstable angina. Patient will receive a full cardiac workup. Patient again is in no distress at this time, patient has no pain. Patient will be reevaluated. Patient remains pain-free, patient has bigeminy. Patient CBC was unremarkable, patient's chemistries were unremarkable, patient's troponin was 253. Previous troponin was 2580 this is while he was having his NH. At this time, I reached out to Dr. Sanders who performed his stent placement, he recommended admission for serial troponins as well as cardiac workup. I spoke with the patient he is agreeable. I will reach out to the hospitalist I spoke with hospitalist, patient will be admitted for PCU observation <Dr. René Child MD - Last Filed: 03/27/23 17:49> [facility] Narrative Medical decision making narrative: I have personally performed a face to face assessment of the patient and have reviewed the JENNA Note. I performed a substantive portion of the visit including all aspects of the following. My finch findings include: History: Patient presents with an episode of chest pain at home. It lasted for about a minute across his chest on both sides. He states he had a sharp pain a little bit in the neck with it that lasted a split-second. Does not really recall being short of breath or nauseated or lightheaded with it. It was not as bad as when he had his heart attack just recently. He just had NH and stent about 2 weeks ago. He has been generally doing well since. Patient is in bigeminy now but does not feel that. We do not know when it started. His stated he had some ectopy and PVCs in the ICU but thinks they resolved. Patient is taking his Brilinta aspirin metoprolol meds. He has not missed. Exam: Patient awake alert no acute distress. He looks comfortable. He is not diaphoretic. Does not look dyspneic. Saturations are normal 98% on room air showing no hypoxia. The monitor shows a heart rate about 85-95 and he is in bigeminy. His lungs are clear. His heart is regular but you can hear the bigeminy. Abdomen is benign. Extremities show no edema cords or swelling. Medical Decision Making: X-ray shows no acute process final reading is negative. Patient's CBC is relatively normal with minimal anemia which is not the source of his symptoms. Electrolytes show no marked abnormalities. Glucose is just minimally up at 126. However, his troponin is high at 253. It was over 1999 when he has an NH. No repeat checks were done. So it is unclear if this is still trending down or may have bumped back up. We discussed the case with his briquette maker, Dr. Rocha who had done his heart catheterization. Plan will be to bring the patient in the hospital trend troponin symptoms and consider further testing or even invasive testing if needed. Lab Data Attestation: I reviewed the patient's lab results. Labs: Laboratory Results - last 24 hr 03/27/23 16:45 WBC 8.6 RBC 4.36 L Hgb 12.5 L Hct 38.3 L MCV 87.8 MCH 28.7 MCHC 32.6 RDW Std Deviation 39.1 RDW Coeff of Shan 12.1 Plt Count 375 MPV 9.6 Immature Gran % (Auto) 0.200 Neut % (Auto) 53.8 Lymph % (Auto) 34.1 [place] % (Auto) 9.1 Eos % (Auto) 2.3 Baso % (Auto) 0.5 Absolute Neuts (auto) 4.6 Absolute Lymphs (auto) 2.93 Nucleated RBC % 0 Sodium 140 Potassium 4.0 Chloride 109 H Carbon Dioxide 28.0 Anion Gap 3 L BUN 22 H Creatinine 1.22 Estim Creat Clear Calc 93.90 Est GFR (MDRD) Af Amer 83 Est GFR (MDRD) Non-Af 68 BUN/Creatinine Ratio 18.0 Glucose 126 H Calcium 8.9 Troponin I High Sens 253 H* Radiography Diagnostic Testing: Clinical Impression(s) from Imaging Studies Chest X-Ray 03/27/23 17:00 IMPRESSION: No active disease. Electronically Signed: Sterling Medina MD at 17:30 EST , Discharge Plan Dx/Rx/DC Orders Clinical Impression: Bigeminy, Recent ST elevation myocardial infarction (STEMI), Non-ST elevation NH (NSTEMI), Chest pain Disposition Disposition: Acute Care Hospital [facility]
[2023-03-27 17:29] LABS: Anion Gap 3 (5-15); BUN 22 mg/dL (7-18); Calcium,Total 8.9 mg/dL (8.5-10.1); Chloride 109 mmol/L (98-107); Creatinine, Serum 1.22 mg/dL (0.70-1.30); EST Glomerular Filtration Rate 68 mL/min (>60); Est Glom Filt Rate - Afr Amer 83 mL/min (>60); Glucose 126 mg/dL (74-106); Sodium Level 140 mmol/L (136-145); Troponin-I HS (w/2H Reflex) 253 pg/mL (3.0-78.0)
[2023-03-27 18:00] VITALS: BP 124/72; PULSE 84; RESP 16; O2SAT 97
--- NOTE | 2023-03-27 18:30 | PCM.HP.STD ---
HPI - General General Date of Admission: 03/27/23 Date of Service: 03/27/23 Chief Complaint: Chest pain HPI Narrative WERO CARREON, is a 47-year-old male history of hypertension and RCA stent 03/14/2023 who presented to [facility] ED 03/27/2023 for chest pain. Around 3 PM when he was at home he had sharp stabbing pain to the left neck and then pain from his left armpit straight across to right armpit which lasted for 1 minute. He has not had any more pain or complaints but due to his recent MT he was sent to the ED. Patient reports he has been taking all of his medicines. In the ED EKG with no ST elevation. Chest x-ray unremarkable, vitally stable, lab workup overall unremarkable aside from a troponin of 253, given recent MT and elevated troponin cardiology contacted who recommend patient be admitted and troponins trended with consideration of further testing if needed. Patient seen with family member at bedside, since his discharge he has been having trouble with feeling very tired during the day and nodding off more so over the past 2 days. 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 Reports chest pain earlier today as above. No present not having any chest pain, feels tired but has no other complaints. [facility] Medical History Acute ST elevation myocardial infarction (STEMI) of inferior wall (03/14/23) Afib Atherosclerotic heart disease Elevated LFTs HLD (hyperlipidemia) HTN (hypertension) Tobacco abuse Home Medications aspirin 81 mg tablet,delayed release 81 mg PO DAILY@0800 #90 tabs 03/16/23 [Rx Last Taken Unknown] ticagrelor 90 mg tablet (Brilinta) 90 mg PO BID #180 tabs 03/16/23 [Rx Last Taken Unknown] losartan 50 mg tablet 50 mg PO DAILY this is a dose decrease #90 tabs 03/23/23 [Rx Last Taken Unknown] famotidine 20 mg tablet 20 mg PO DAILY 03/27/23 [History Last Taken Unknown] metoprolol succinate 25 mg tablet,extended release 24 hr 12.5 mg (1/2 x 25 mg) PO DAILY #90 tabs 03/27/23 [Rx Last Taken Unknown] Allergy/AdvReac Type Severity Reaction Status Date / Time No Known Allergies Allergy Verified 03/27/23 10:26 Family History Father CAD (coronary artery disease) Surgical History H/O cardiac radiofrequency ablation History of coronary artery stent placement Stented coronary artery (03/14/23) Social History household members: family housing: house Smoking Status: Former smoker Smokeless tobacco user: chewing tobacco how long ago did patient quit smokin alcohol intake: current alcohol intake frequency: holidays/special occasions only substance use type: does not use caffeine: No ROS ROS Narrative General: Denies fever/chills, feels very tired, had some diaphoresis during his episode earlier HENT: Denies headache, denies stuffy nose, denies sore throat EYES: Denies changes in vision Resp: Denies cough, denies shortness of breath Cardiac: Episode of chest pain earlier in the day GI: Denies abdominal pain, denies changes in bowel, denies nausea/vomiting : Denies changes in urination Extremity: Denies swelling MSK: Denies weakness Neuro: Denies any numbness/tingling Heme: Denies any bleeding or bruising Skin: Denies rashes Psychiatric: No complaints voiced Vital Signs Vital Signs Vital Signs: 03/27/23 16:38 03/27/23 17:05 03/27/23 18:00 Temperature 97.6 F L Temperature Source Temporal Pulse Rate 93 84 Respiratory Rate 16 16 Blood Pressure 148/90 H 124/72 H Blood Pressure Mean 109 89 Pulse Ox 94 98 97 Oxygen Delivery Method Room Air Room Air Room Air Weight Weight: 104.1 kg Body Mass Index (BMI) 32.0 Physical Exam Narrative General: Alert, oriented, no apparent distress HEENT: Atraumatic, normocephalic Eyes: Anicteric, normal conjunctiva, extraocular movements grossly intact Neck: Supple Respiratory: Clear to auscultation bilaterally, normal respiratory effort Cardiovascular: Bigeminy appreciated GI: Soft, nontender, nondistended Extremities: No edema Musculoskeletal: Moving all extremities Neuro: No overt focal neurological deficits Skin: No rashes appreciated Psych: Cooperative Results Lab / Micro Data 03/27/23 16:45 03/27/23 16:45 Labs: Laboratory Results - last 24 hr 03/27/23 16:45: WBC 8.6, RBC 4.36 L, Hgb 12.5 L, Hct 38.3 L, MCV 87.8, MCH 28.7, MCHC 32.6, RDW Std Deviation 39.1, RDW Coeff of Shan 12.1, Plt Count 375, MPV 9.6, Immature Gran % (Auto) 0.200, Neut % (Auto) 53.8, Lymph % (Auto) 34.1, Mcintosh % (Auto) 9.1, Eos % (Auto) 2.3, Baso % (Auto) 0.5, Absolute Neuts (auto) 4.6, Absolute Lymphs (auto) 2.93, Nucleated RBC % 0, Sodium 140, Potassium 4.0, Chloride 109 H, Carbon Dioxide 28.0, Anion Gap 3 L, BUN 22 H, Creatinine 1.22, Estim Creat Clear Calc 93.90, Est GFR (MDRD) Af Amer 83, Est GFR (MDRD) Non-Af 68, BUN/Creatinine Ratio 18.0, Glucose 126 H, Calcium 8.9, Troponin I High Sens 253 H* Imaging Radiology Impression Chest X-Ray 03/27/23 17:00 IMPRESSION: No active disease. Electronically Signed: Sterling Medina MD at 17:30 EST , Assessment & Plan Assessment/Plan (1) Elevated troponin: (2) Chest pain: (3) Bigeminy: (4) Stented coronary artery: (5) Recent ST elevation myocardial infarction (STEMI): PLAN: Plan # Elevated troponin -Patient's troponin when he had his MT was over 1999 but was not trended to peak so unclear if it still trending down or bumped back up. -Cardiology recommended trending troponins and admitted to the hospital for further workup and monitoring -Admit to telemetry -Patient with recent inferior wall MT 03/14/2023 with RCA stenting. At that time The LAD did not show any significant disease a second diagonal branch had an ostial lesion of 50% the left circumflex and proximally was normal and had an eccentric 30% lesion in the midsegment. There is a large OM1 and OM 2 free of any significant disease the patient's right coronary was totally obstructed and subsequently repeat vascularized with stenting. -Echo March 16 showed EF of 65% and stage II diastolic dysfunction -Troponin of 253, will trend -EKG sinus rhythm with frequent PVCs and no acute ST elevation. -Limited echo for wall motion abnormalities -Cardiology notified in ED -Heart healthy diet, n.p.o. at midnight in the event patient has increasing troponins and needs intervention -Asa, brillinta -Lipid panel reviewed -Pt not on statin d/t elevated liver enzymes, most recent liver enzymes much improved, will start atorvastatin at 40 and monitor LFTs # Ventricular bigeminy -Seen on EKG and telemetry -Unclear how long patient has been in this, cardiology consulted -Metoprolol continued -LTD echo # Coronary artery disease with recent RCA stent -As above -Continue antiplatelet agents and beta-charles -Not on statin due to abnormal liver enzymes, they are being rechecked in 3 weeks and plan was to start atorvastatin if they are within normal limits however given chest pain and elevated troponin with recent check of LFTs that have significantly improved we will start atorvastatin but at 40 mg -Heart healthy diet #Chronic HFpEF -Not in exacerbation -Echo March 16 showed EF of 65% and stage II diastolic dysfunction -Daily weights, I's and O's #Excessive daytime sleepiness/ Concern for JENY -Being worked up on outpatient basis -Saw pulmonology 03/27/2023 and will be pursuing a sleep study # Hypertension -Continue metoprolol and losartan #GERD -Famotidine #DVT ppx: Lovenox subcu Vikki Williamson MD Time spent in the patient's overall evaluation,decision-making process, review of diagnostic data, adjustment of management, discussion with other providers, nursing nursing and ancillary staff involved in patient's care documentation, 57 Minutes Charges/Coding Visit Charges Inpatient E&M: 98555 Init Hosp L2
--- OUTSIDE RECORDS SUMMARY | 2023-03-27 18:34 | XMS RPT_ITS | CCD ---
Author Name Unknown Address [address] [place] [address] Organization [facility] Care Team Providers Care Border Guard Name Role Phone Lexi Avilez Unavailable Unavailable Provider , Unlisted Primary Care Provider Unav ailable Provider , Unlisted Primary Care Provider Unav ailable SUN VALLEY, KENDRA Attending Unavailable SUN VALLEY, KENDRA Admitting Unavailable SUN [place]LEY, KENDRA Primary Care Unavailable SUN [place]LEY, KENDRA Consulting Unavailable PROVIDER, UNKNOWN Consulting Unavailable SUN [place], KENDRA Attending Unavailable [place], KENDRA Admitting Unavailable SUN [place], KENDRA Primary Care Unavailable [place], KENDRA Consulting Unavailable PROVIDER, UNKNOWN Consulting Unavailable [place], KENDRA Attending Unavailable [place], KENDRA Admitting Unavailable SUN [place], KENDRA Primary Care Unavailable SUN [place], KENDRA Consulting Unavailable PROVIDER, UNKNOWN Consulting Unavailable Problems Active Problems Problem Classification Problem Date Documented Da te Episodic/Chronic Disorders of lipid metabolism (2 sources) Mixed hyperlipidemia; Translations: [Mixed hyperlipidemia] Onset: 02-18-2023 Chronic Essential hypertension (1 source) Essential (primary) hypertension; Translations: [Essential (primary) hypertension] Onset: 02-18-2023 Chronic Other aftercare (1 source) Other fdc (current) drug therapy; Translations: [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 Start: 03-09-2023 End: 03-09-[address] [facility] Start: 02-18-2023 End: 02-18-[address] [facility] Start: 04-01-2021 End: 04-01-2021 Subsequent hospital visit by physician Jorge Downing MD [facility] Start: 03-25-2021 End: 03-25-2021 Subsequent hospital visit by physician Jorge Downing MD Work Phone: [facility] Start: 09-17-2017 Patient encounter Lexi Valle Fatmata Marycruz acility:[facility] Procedures Date Procedure Procedure Detail Performing Clinician Start: 04-01-2021 SARS-COV-2, QPCR ([facility]) Jorge Downing MD Plan of Treatment Date Care Activity Detail Author Start: 10-24-2020 Influenza vaccination given INFLUENZA VACCINE (#1) [facility] Start: 2017 Screening mammography MAMMOGRAM [facility] Start: 1998 Screening for malignant neoplasm of cervix PAP SMEAR [facility] Start: 12-27-1995 ANNUAL WELLNESS VISIT ANNUAL WELLNESS VISIT [facility] Start: 1989 Depression screening using PHQ-9 (Patient Health Questionnaire 9) score DEPRESSION SCREENING [facility] Start: 1988 Diphtheria + pertussis + tetanus vaccine (product) DTAP/TDAP/TD VACCINE (1 - Tdap) [facility] Start: 1982 COVID-19 VACCINE (1) COVID-19 VACCINE (1) [facility] Payers Date Payer Category Payer Unknown [employer] PPO [id number] 2019-Present [phone] [address] [place] [address] PPO [id number] 2019 Unknown [employer] PPO [id number] 2019-Present [phone] [address] [place] [address] PPO [id number] 2018 Unknown [id number] 1977 Unknown [id number] 1977 Unknown [id number] 1977 Unknown [id number] Unknown [id number] Social History Date Type Detail Facility Tobacco smoking status [facility] Unknown if ever smoked [facility] Start: 1977 Sex Assigned At Not on file G 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 DATE CREATED AUTHOR AUTHOR'S ORGANIZ ATION 03/11/2023 [facility] Care Teams (unrecognized sec tion and [...] BE BASED ON THE PRIMARY CLINICAL RECORDS. [facility] [facility]. provides no warranty or guarantee of the accuracy or completeness of information in this document.
[2023-03-27 18:52] VITALS: BMI 32.1
[2023-03-27 18:55] VITALS: BP 129/82; PULSE 87
--- OUTSIDE RECORDS SUMMARY | 2023-03-27 19:01 | XMS RPT_ITS | CCD ---
Author Name Unknown Address [address] [place] [address] Organization [facility] Care Team Providers Care Chipping Machine Operator Name Role Phone Lexi Avilez Unavailable Unavailable Provider , Unlisted Primary Care Provider Unav ailable Provider , Unlisted Primary Care Provider Unav ailable POLEBRIDGE, KENDRA Attending Unavailable POLEBRIDGE, KENDRA Admitting Unavailable POLEBRIDGE, KENDRA Primary Care Unavailable POLEBRIDGE, KENDRA Consulting Unavailable PROVIDER, UNKNOWN Consulting Unavailable POLEBRIDGE, KENDRA Attending Unavailable POLEBRIDGE, KENDRA Admitting Unavailable POLEBRIDGE, KENDRA Primary Care Unavailable POLEBRIDGE, KENDRA Consulting Unavailable PROVIDER, UNKNOWN Consulting Unavailable POLEBRIDGE, KENDRA Attending Unavailable POLEBRIDGE, KENDRA Admitting Unavailable POLEBRIDGE, KENDRA Primary Care Unavailable POLEBRIDGE, KENDRA Consulting Unavailable PROVIDER, UNKNOWN Consulting Unavailable Problems Active Problems Problem Classification Problem Date Documented Da te Episodic/Chronic Disorders of lipid metabolism (2 sources) Mixed hyperlipidemia; Translations: [Mixed hyperlipidemia] Onset: 02-18-2023 Chronic Essential hypertension (1 source) Essential (primary) hypertension; Translations: [Essential (primary) hypertension] Onset: 02-18-2023 Chronic Other aftercare (1 source) Other senior living (current) drug therapy; Translations: [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 intermodal 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 (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) drug therapy] Onset: 03-10-2023 Episodic Unclassified (1 source) Unknown / UNK(Unknown) Onset: 09-17-2017 Past or Other Problems Problem Classification Problem Date Documented Da te Episodic/Chronic Unclassified (1 source) WOUND LEFT HAND Onset: 09-17-2017 Results Test Name Value Interpretation Reference Range Facil ity Encounters Encounter Date Encounter Type Care Provider Facility Start: 03-10-2023 End: 03-10-2023 ambulatory [facility] Start: 03-09-2023 End: 03-09-2023 ambulatory [facility] Start: 02-18-2023 End: 02-18-2023 ambulatory [facility] Start: 04-01-2021 End: 04-01-2021 Subsequent hospital visit by physician Jorge Downing MD [facility] Start: 03-25-2021 End: 03-25-2021 Subsequent hospital visit by physician Jorge Downing MD Work Phone: [facility] Start: 09-17-2017 Patient encounter Lexi Valle Fatmata Marycruz acility:[facility] Procedures Date Procedure Procedure Detail Performing Clinician Start: 04-01-2021 SARS-COV-2, QPCR ([facility]) Jorge Downing MD Plan of Treatment Date Care Activity Detail Author Start: 10-24-2020 Influenza vaccination given INFLUENZA VACCINE (#1) [facility] Start: 2017 Screening mammography MAMMOGRAM [facility] Start: 1998 Screening for malignant neoplasm of cervix PAP SMEAR [facility] Start: 12-27-1995 ANNUAL WELLNESS VISIT ANNUAL WELLNESS VISIT [facility] Start: 1989 Depression screening using PHQ-9 (Patient Health Questionnaire 9) score DEPRESSION SCREENING [facility] Start: 1988 Diphtheria + pertussis + tetanus vaccine (product) DTAP/TDAP/TD VACCINE (1 - Tdap) [facility] Start: 1982 COVID-19 VACCINE (1) COVID-19 VACCINE (1) [facility] Payers Date Payer Category Payer Unknown [employer] PPO [id number] 2019-Present [phone] [address] [place] [address] PPO [id number] 2019 Unknown [employer] PPO [id number] 2019-Present [phone] [address] [place] [address] PPO [id number] 2018 [id number] 1975 Unknown [id number] 1975 Unknown [id number] 1977 Unknown [id number] Unknown [id number] Social History Date Type Detail Facility Tobacco smoking status [facility] Unknown if ever smoked [facility] Start: 1977 Sex Assigned At Not on file G [facility] Tobacco smoking status [facility] Tobacco smoking consumption unknown 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 Advance Directives and Living Will Power of Blood Donor Recruiter DNR Documentation Additional Source Comments (unrecognized sect ion and content) No Status Records FoundNo Status Records FoundNo Status Records FoundNo Status Records Found INFORMATION SOURCE (unrecogn ized section and content) DATE CREATED AUTHOR AUTHOR'S ORGANIZ ATION 09/23/2020 [facility] DATE CREATED AUTHOR AUTHOR'S ORGANIZ ATION 04/03/2021 [facility] DATE CREATED AUTHOR AUTHOR'S ORGANIZ ATION 03/08/2022 [facility] DATE CREATED AUTHOR AUTHOR'S ORGANIZ ATION 03/11/2023 [facility] Care Teams (unrecognized sec tion and [...] BE BASED ON THE PRIMARY CLINICAL RECORDS. [facility]. provides no warranty or guarantee of the accuracy or completeness of information in this document.
[2023-03-27 19:03] LABS: Reflex Troponin-HS? (from REC) Y
[2023-03-27 20:00] LABS: Troponin-I HS 273 pg/mL (3.0-78.0)
[2023-03-27 21:42] LABS: International Normalized Ratio 1.3; Prothrombin Time (Protime)PT. 15.9 SECONDS (11.7-14.9)
[2023-03-27 21:43] LABS: Partial Thromboplast Time 35.4 Seconds (24.1-36.2)
[2023-03-27 22:06] VITALS: BP 139/96; PULSE 104; RESP 18; TEMP 36.8; O2SAT 98
--- NOTE | 2023-03-27 22:25 | PCM.HOSP.N ---
Hospitalist Note Patient having 3-5 beat frequent ones of monomorphic wide-complex tachycardia that appears consistent with monomorphic VT. Will check magnesium level. Potassium is 4.0. QTc corrected is prolonged on EKG so we will hold metoprolol for now. Cardiology consult is pending. Patient is asymptomatic during these episodes.
[2023-03-27] MEDS: HEPARIN/D5w 25,000 UNITS 25,000 UNITS/250 ML IV.SOLN. 10 UNITS CONT INF (22:41)
[2023-03-27 22:48] LABS: Magnesium 2.4 mg/dL (1.6-2.6)
[2023-03-27] MEDS: Heparin Injection (Vial) 5,000 UNIT/ML VIAL 4000 UNIT IV (22:48)
[2023-03-27] MEDS: Losartan Potassium 50 MG Tablet PO (22:55)
[2023-03-27] MEDS: Famotidine 20 MG Tablet PO (22:55)
[2023-03-27] MEDS: TICAGRELOR 90 MG TABLET PO (22:55)
[2023-03-27] MEDS: Aspirin 81 MG TAB.CHEW 324 MG PO (23:06)
[2023-03-27 23:40] LABS: Troponin-I HS 297 pg/mL (3.0-78.0)
[2023-03-28] VITALS (13 sets, daily range): BP systolic 92–167; BP diastolic 63–111; PULSE 88–163; RESP 13–23; TEMP 36.5; O2SAT 93–100
--- NOTE | 2023-03-28 00:37 | PCM.HOSP.N ---
Hospitalist Note Patient had persistent and more frequent wide-complex tachycardia that appeared to be monomorphic VT. He is having intermittent symptoms with at this point. Cardiology was notified and they asked that we transfer him to the ICU and if he has any more symptoms they would call in a team and cath him. He is to remain NPO.
[2023-03-28] MEDS: Amiodarone 360 MG in Dextrose 5% Viaflo Bag 192.8 ML 33.2999999999999972 MG CONT INF (01:15)
[2023-03-28] MEDS: 0.9% Saline Lock 10 ML Syringe IV ×2 (01:16→03:35)
--- NOTE | 2023-03-28 02:39 | PRO.PCM_ITS ---
Procedure Report Date of Procedure: 03/28/23 Left heart catheterization; 1.. Moderate sedation 2. Selective left coronary angiography 3. Selective right coronary angiography 4. Measurement of LVEDP 5. Left ventriculogram 6. Placement of TR band to close the right radial artery arteriotomy site. Consent; Risk and benefit of procedure explained detail patient elected to proceed informed consent obtained. Preprocedure diagnosis 47-year-old patient with a recent history of large inferior VT With the successful PCI of the distal LAD using drug-eluting stent Presented with symptoms of palpitation and has a wide QRS complex tachycardia which does not respond well to the treatment with amiodarone Electrolytes were normal He was shocked 1 time but still showing frequent PVCs with ventricular bigeminy. Based on her recent history of inferior VT and nonspecific symptoms in particular he had a mild symptoms of chest pain and elevated high sensitive troponin we will proceed with cardiac catheterization. Diagnostic catheter used; #1 5 Ethiopian JL 3.5 2. 5 Ethiopian JR4 3. 5 Ethiopian pigtail catheter. Procedure in detail; Patient brought to the Radar Air Traffic Controller, right radial artery area prepped and draped in the usual sterile fashion 6 Ethiopian sheath placed in the right radial artery Will proceed with a 5 Ethiopian JL 3.5 advanced sending aorta cannulated the left main without difficulty multiple views of left Cholestin were obtained Following the catheter exchanged for 5 Ethiopian JR4 and selective angiographic right Cholestin were obtained following this catheter exchanged for 5 Ethiopian pigtail catheter and the ventricular obtained 30 degree HOLLEY projection following this or angiogram we will study Findings Hemodynamics; LVEDP measuring 22 mmHg EF in the range of 50-55% Mild inferior hypokinesia No mitral rotation noted No systolic gradient across aortic valve. Coronary angiography 1. Left main coronary artery is normal angiographically it is short bifurcating into LAD and left circumflex 2. Left anterior descending is a large vessel reach all the way to the apex The first diagonal branch had ostial lesion of around 40 to 50%. The large D1 with a FARRAH-3 flow in the. Left circumflex artery proximally had nonobstructive sclerosis mid left circumflex have diffuse atherosclerosis with extension of atherosclerosis involving the periseptal is marginal branch which is around 40-50% 3. RCA large dominant patency of the RCA stent. Conclusion recommendation this patient has frequent abnormal cardiac rhythm with wide QRS complex tachycardia likely V. tach had a recent VT was given amiodarone did not respond well and he was shocked 2 times and it was resistant arrhythmia that reason we took him to the Radar Air Traffic Controller to assess for patency of his large RCA stent which is patent patient will be on amiodarone drip his heart rhythm is still in frequent PVCs with ventricular bigeminy and currently is on amiodarone electrolytes have been checked including magnesium Pneumotussin were normal with a magnesium level 2.4 Recommend to transfer to evaluate by AV/patient has a prior A-fib ablation at [facility] around 9 years ago. No complication in the Radar Air Traffic Controller Jaky Rocha MD,FACC,[facility]
--- NOTE | 2023-03-28 02:46 | CON.PCM.CA_ITS ---
Assessment & Plan Assessment/Plan (1) Recent ST elevation myocardial infarction (STEMI): (2) HTN (hypertension): QUALIFIERS: Hypertension type: primary hypertension Qualified Code(s): I10 - Essential (primary) hypertension (3) Elevated troponin: (4) Chest pain: (5) Non-ST elevation MA (NSTEMI): PLAN: 47-year-old patient Has symptoms of lightheadedness dizziness and atypical chest pain and epigastric discomfort He was admitted through the ED today at [facility] Patient had a recent STEMI inferior with PCI and stent of RCA He had abnormal cardiac rhythm with frequent PVCs and nonsustained V. tach While in ICU he had while complex tachycardia does not respond well to amiodarone Electrolytes has been within normal including the potassium magnesium with a magnesium level 2.4 Patient was shocked x 2 still remains in wide-complex tachycardia converted to sinus with ventricular bigeminy Based on his clinical presentation he was brought into the Dance Choreographer underwent cardiac catheterization which showed patency of the RCA stent with nonobstructive sclerosis involving the diagonal branch as well as the left circumflex LV function showed ejection fraction in the range of 50-55% Mild inferior hypokinesia Cardiac care plan recommendations; 1. Will continue on the dual antiplatelet therapy including the aspirin and Brilinta. His heart rate was on the lower range and beta-charles has been on hold patient will be transferred to [facility] as she has been seen at the clinic before with the ablation for A-fib Due to his abnormal cardiac rhythm which is resistant to the current treatment would recommend to transfer to electrophysiology evaluation. At the tertiary cardiac center/[facility] Jaky Rocha MD,FAC,[facility] HPI Consult Data Date of Consult: 03/28/23 HPI Narrative Reason for Consultation: CAD/recent inferior STEMI/status post PCI RCA HPI Narrative: WERO CARREON, is a 47 M who presents [facility] Medical History (Reviewed 03/27/23 @ 10:43 by Alma Lezama ELASTIC ATTACHER OVERLOCK, ELASTIC ATTACHER OVERLOCK-C) Acute ST elevation myocardial infarction (STEMI) of inferior wall (03/14/23) Afib Atherosclerotic heart disease Elevated LFTs HLD (hyperlipidemia) HTN (hypertension) Tobacco abuse Home Medications aspirin 81 mg tablet,delayed release 81 mg PO DAILY@0800 #90 tabs 03/16/23 [Rx Last Taken Unknown] ticagrelor 90 mg tablet (Brilinta) 90 mg PO BID #180 tabs 03/16/23 [Rx Last Taken Unknown] losartan 50 mg tablet 50 mg PO DAILY this is a dose decrease #90 tabs 03/23/23 [Rx Last Taken Unknown] famotidine 20 mg tablet 20 mg PO DAILY 03/27/23 [History Last Taken Unknown] metoprolol succinate 25 mg tablet,extended release 24 hr 12.5 mg (1/2 x 25 mg) PO DAILY #90 tabs 03/27/23 [Rx Last Taken Unknown] Allergy/AdvReac Type Severity Reaction Status Date / Time No Known Allergies Allergy Verified 03/27/23 10:26 Family History (Reviewed 03/27/23 @ 10:43 by Alma Lezama ELASTIC ATTACHER OVERLOCK, ELASTIC ATTACHER OVERLOCK-C) Father CAD (coronary artery disease) Surgical History H/O cardiac radiofrequency ablation History of coronary artery stent placement Stented coronary artery (03/14/23) Social History household members: family housing: house Smoking Status: Former smoker Smokeless tobacco user: chewing tobacco how long ago did patient quit smokin alcohol intake: current alcohol intake frequency: holidays/special occasions only substance use type: does not use caffeine: No Physical Exam Cardio Cardio Narrative: Patient seen and evaluated in CCU/ICU Patient with abnormal cardiac rhythm/wide QRS tachycardia and nonspecific chest pain Regular Chest exam clear to auscultation bilateral.Cardiac exam S1-S2 Risk Stratification Risk Stratification Applicable: No Objective Data Vital Signs: Vital Signs Temp Pulse Resp BP Pulse Ox O2 Del Method 97.7 F L 160 H 14 152/110 H 97 Room Air 03/28/23 01:15 03/28/23 01:31 03/28/23 01:31 03/28/23 01:31 03/28/23 01:31 03/28/23 01:31 Oxygen Delivery Method Room Air Weight: 230 lb 2.601 oz Body Mass Index (BMI) 32.1 Intake & Output: Intake and Output for Last 24 Hours 03/26/23 03/27/23 03/28/23 23:59 23:59 23:59 Intake Total Balance Lab / Micro Data 03/27/23 16:45 03/27/23 16:45 Labs: Laboratory Results - last 24 hr 03/27/23 16:45: WBC 8.6, RBC 4.36 L, Hgb 12.5 L, Hct 38.3 L, MCV 87.8, MCH 28.7, MCHC 32.6, RDW Std Deviation 39.1, RDW Coeff of Shan 12.1, Plt Count 375, MPV 9.6, Immature Gran % (Auto) 0.200, Neut % (Auto) 53.8, Lymph % (Auto) 34.1, [place] % (Auto) 9.1, Eos % (Auto) 2.3, Baso % (Auto) 0.5, Absolute Neuts (auto) 4.6, Absolute Lymphs (auto) 2.93, Nucleated RBC % 0, Sodium 140, Potassium 4.0, Chloride 109 H, Carbon Dioxide 28.0, Anion Gap 3 L, BUN 22 H, Creatinine 1.22, Estim Creat Clear Calc 93.90, Est GFR (MDRD) Af Amer 83, Est GFR (MDRD) Non-Af 68, BUN/Creatinine Ratio 18.0, Glucose 126 H, Calcium 8.9, Troponin I High Sens 253 H* 03/27/23 19:20: PT 15.9 H, INR 1.3, APTT 35.4, Magnesium 2.4, Troponin I High Sens 273 H* 03/27/23 23:05: Troponin I High Sens 297 H* Cardiology Labs/Tests 03/27/23 16:45: WBC 8.6, RBC 4.36 L, Hgb 12.5 L, Hct 38.3 L, MCV 87.8, MCH 28.7, MCHC 32.6, Plt Count 375, MPV 9.6, Immature Gran % (Auto) 0.200, Neut % (Auto) 53.8, Lymph % (Auto) 34.1, [place] % (Auto) 9.1, Eos % (Auto) 2.3, Baso % (Auto) 0.5, Absolute Neuts (auto) 4.6, Nucleated RBC % 0, Sodium 140, Potassium 4.0, Chloride 109 H, Carbon Dioxide 28.0, Anion Gap 3 L, BUN 22 H, Creatinine 1.22, Est GFR (MDRD) Af Amer 83, Est GFR (MDRD) Non-Af 68, BUN/Creatinine Ratio 18.0, Glucose 126 H, Calcium 8.9 03/27/23 19:20: PT 15.9 H, INR 1.3, APTT 35.4, Magnesium 2.4 Rhythm: EKG: ECHO: Stress Test: Cardiac Cath: PCI: CT Surgery: Holter monitor: EPS: PPM: CXR: Chest CT Scan: Radiography Diagnostic Testing: Radiology Impression Chest X-Ray 03/27/23 17:00 IMPRESSION: No active disease. Electronically Signed: Sterling Medina MD at 17:30 EST ,
--- NOTE | 2023-03-28 03:13 | PCM.DC.SUM ---
Providers Date of Admission: 03/27/23 Date of Discharge: 03/28/23 Primary Care Physician: Nanette Zimmer PA-C Consultations 03/27/23 18:47 Consult: Cardiology Routine Consulting Provider: Jaky Rocha Reason for Consult: Chest Pain, elevated trop, recent stemi w/ stent EMERGENT Consult: No MD Notified: Yes Date Notified: 03/27/23 Time Notified: 18:42 Method of Notification: ED Physician Initiated Reason For Visit: ELEVATED TROPONIN, CHEST PAIN Diagnosis Discharge Diagnosis (1) Recent ST elevation myocardial infarction (STEMI): Status: Acute (2) HTN (hypertension): Status: Chronic Code(s): I10 - Essential (primary) hypertension Qualifiers: Hypertension type: primary hypertension Qualified Code(s): I10 - Essential (primary) hypertension (3) Elevated troponin: Status: Acute Code(s): R79.89 - Other specified abnormal findings of blood chemistry (4) Chest pain: Status: Acute Code(s): R07.9 - Chest pain, unspecified (5) Non-ST elevation PR (NSTEMI): Status: Acute Code(s): I21.4 - Non-ST elevation (NSTEMI) myocardial infarction (6) Wide-complex tachycardia: Status: Acute Code(s): R00.0 - Tachycardia, unspecified (7) Atrial flutter: Status: Acute Code(s): I48.92 - Unspecified atrial flutter Medications at Discharge Home Medications aspirin 81 mg tablet,delayed release 81 mg PO DAILY@0800 #90 tabs 03/16/23 ticagrelor 90 mg tablet (Brilinta) 90 mg PO BID #180 tabs 03/16/23 losartan 50 mg tablet 50 mg PO DAILY this is a dose decrease #90 tabs 03/23/23 famotidine 20 mg tablet 20 mg PO DAILY 03/27/23 metoprolol succinate 25 mg tablet,extended release 24 hr 12.5 mg (1/2 x 25 mg) PO DAILY #90 tabs 03/27/23 Hospital Course Operations None Procedures Cardiac catheterization, Cardioversion and - ( conscious sedation) Summary of Care Provided Minutes Spent on Discharge: 45 Hospital Course: Mr. Larson is a 47-year-old white male who presented to the emergency department at [facility] on 03/27/2019 4 in the afternoon. He was at the pulmonary medicine office earlier in the day and was noted to be bradycardic with a heart rate in the 40s. At around 3 PM he was at home and had some sharp stabbing chest pain and left neck pain that radiated to his left armpit and straight across his chest to his right armpit which lasted for about a minute. He had a recent admission here on 03/14/2023 for a STEMI at which time an RCA stent was placed. Post stent echocardiogram showed normal EF with inferior and posterior wall motion abnormality and stage II diastolic dysfunction. He noted he was compliant with all his medications including his aspirin and Brilinta. His EKG on presentation showed bigeminy with a rate of 95, NC interval of 162 and initial QRS was normal. His chest x-ray was unremarkable and his labs were unremarkable. Initial troponin was 253. Cardiology was contacted given his recent PR and troponin elevation and arrhythmia noted and recommended admission. He was admitted to the telemetry floor and his cardiac enzymes were cycled. His cardiac enzymes did trend up slightly and he was started on a heparin drip. After arriving to the floor he developed some nonsustained wide-complex tachycardia that was 3 to 5 bpm and he was asymptomatic. At that time his QTc was noted to be prolonged so we held his beta-charles and obtained a magnesium level. His potassium level was 4.0. Magnesium level was found to be 2.4. He developed longer runs of a wide-complex tachycardia and cardiology was once consulted with and recommended making him n.p.o. and transferring him to the ICU. He was given a bolus of amiodarone 300 mg x 1 dose and then placed on a drip. After arriving in the ICU his wide-complex tachycardia became sustained and STEMI team was called for Flatlock Sewing Machine Operator to come in. Cardiology arrived on the floor and patient was placed under conscious sedation for cardioversion. He was initially cardioverted with 200 J which Resulted in a change of his wide-complex tachycardia to a flutter with 2-1 block. Initial rates with wide-complex tachycardia were 1 60-1 80 and rates after were consistently at 160. His rhythm then slowly improved back to bigeminy. He was then taken to the Flatlock Sewing Machine Operator or his stent was found to be widely patent and no other new lesions were noted. Cardiology requested he be transferred to tertiary center for EP evaluation. Patient does have a history of A-fib with radiofrequency ablation done at [facility] about [address] [facility] was called and they accepted him for transfer. Patient was able to be accepted and transferred on 03/28/[address] [facility] for EP evaluation and ongoing medical care for his cardiac issues. He was stable at the time of his discharge. Discharge diagnoses: Troponin elevation Bradycardia Bigeminy A flutter with 2-1 blocks Wide-complex tachycardia Coronary artery disease with recent STEMI-inferior wall Hypertension Hyperlipidemia GERD History of atrial fibrillation/flutter Obesity Tobacco abuse Physical Exam Const alert, oriented x3 and no apparent distress Constitutional Narrative: Obese, middle-aged, white male, sitting up in bed, at bedside, patient appears comfortable but anxious General Appearance: cooperative, comfortable, well kempt and well developed Orientation / Consciousness: awake, oriented to person, oriented to place and oriented to time HEENT normocephalic, head/scalp atraumatic, hearing grossly normal bilaterally and moist oral mucous membranes Resp normal respiratory effort, no retractions, no use of accessory muscles and clear to auscultation bilaterally Auscultation: Negative for rales, rhonchi or wheezes Cardio S1 normal heart sound, S2 normal heart sound, no murmurs, no rub, no gallops and no clicks; Negative for regular rate or regular rhythm Cardio Narrative: Bradycardia with ectopic beats noted on telemetry GI normal to inspection, nondistended, normoactive bowel sounds, soft to palpation and non-tender Extremity no clubbing, cyanosis or edema Extremity Narrative: Pedal pulses are 2+, right radial compression device in place post catheterization with good perfusion to the right hand Neuro oriented x3, moves all extremities and no focal motor deficits Psych Psych Narrative: Eye contact is good, patient interacts appropriately Mood & Affect: anxious Weight / BMI Weight Weight: 104.4 kg Body Mass Index (BMI) 32.1 ABG / Lab / Microbiology Data 03/27/23 16:45 03/27/23 16:45 Laboratory: Laboratory Results - last 24 hr 03/27/23 16:45: WBC 8.6, RBC 4.36 L, Hgb 12.5 L, Hct 38.3 L, MCV 87.8, MCH 28.7, MCHC 32.6, RDW Std Deviation 39.1, RDW Coeff of Shan 12.1, Plt Count 375, MPV 9.6, Immature Gran % (Auto) 0.200, Neut % (Auto) 53.8, Lymph % (Auto) 34.1, [place] % (Auto) 9.1, Eos % (Auto) 2.3, Baso % (Auto) 0.5, Absolute Neuts (auto) 4.6, Absolute Lymphs (auto) 2.93, Nucleated RBC % 0, Sodium 140, Potassium 4.0, Chloride 109 H, Carbon Dioxide 28.0, Anion Gap 3 L, BUN 22 H, Creatinine 1.22, Estim Creat Clear Calc 93.90, Est GFR (MDRD) Af Amer 83, Est GFR (MDRD) Non-Af 68, BUN/Creatinine Ratio 18.0, Glucose 126 H, Calcium 8.9, Troponin I High Sens 253 H* 03/27/23 19:20: PT 15.9 H, INR 1.3, APTT 35.4, Magnesium 2.4, Troponin I High Sens 273 H* 03/27/23 23:05: Troponin I High Sens 297 H* Radiography Diagnostic Testing: Radiology Impression Chest X-Ray 03/27/23 17:00 IMPRESSION: No active disease. Electronically Signed: Sterling Medina MD at 17:30 EST , Meaningful Use Info Meaningful Use Diagnoses (Choose all that apply): None applicable Discharge Plan Admission Admit Date/Time: 03/27/23 18:38 Primary Reason for Your Visit: Chest pain Attending Provider: Vikki Williamson Primary Care Provider: Nanette Zimmer Consulting Providers: Jaky Rocha Discharge Orders/Prescriptions Prescriptions: No Action aspirin 81 mg Tablet,Delayed Release (Dr/Ec) 81 mg PO DAILY@0800 Qty: 90 0RF Brilinta 90 mg Tablet 90 mg PO BID Qty: 180 0RF famotidine 20 mg tablet 20 mg PO DAILY Patient Comments: TAKE ONE TABLET BY MOUTH TWICE DAILY NEEDED losartan 50 mg tablet 50 mg PO DAILY Qty: 90 3RF metoprolol succinate 25 mg tablet extended release 24 hr 12.5 mg PO DAILY Qty: 90 3RF Patient Comments: pt. took full 25 mg dose today, told to skip dose tomorrow and start 12.5 mg/day on wednesday 03/29 Referrals / Follow Up: Nanette Zimmer PAJuanC [Primary Care Provider] - Disposition Disposition (needs filled in before D/C Order can be placed): Acute Care Hospital Charges/Coding Visit Charges Inpatient E&M: 71777 Disch Hosp >30min
--- NOTE | 2023-03-28 03:19 | NURSING ---
0105: HR sustaining in the 160s, wide complex tachycardia. 150 mg amio bolus IVP x1 given by Padmaja Price RN per Dr. Rocha telephone order. Amio gtt ordered to follow. Dr. Rocha and bottle labeler team on their way in. 0135: Dr. Rocha at bedside to assess patient. Decision made to cardiovert patient. 0145: Dr. Hall ED physician at bedside for procedure. Pt hooked up to ICU monitor and [facility] monitoring. 0147: 100 mg propofol IVP given by Dr. Hall. 0148: Pt cardioverted @ 200 J and then approximately 30 seconds later was cardioverted @ 250 J. 0152: 150 mg amio bolus given per Dr. Rocha's order 0155: Pt taken down to the bottle labeler
[2023-03-28] MEDS: Propofol 200 MG/20 ML Vial 100 MG IV BOLUS (03:34)
[2023-03-28 03:43] LABS: Absolute Lymphocyte Count 2.26 X10^3/uL (0.83-4.51); Absolute Neutrophil Count 7.2 X10^3/uL (2.0-7.7); Basophil# 0.04 X10^3/uL; Basophil% 0.4 % (0-1); Eosinophil# 0.13 X10^3/uL; Eosinophils% 1.2 % (0-5); Hematocrit 38.6 % (40-54); Hemoglobin 12.7 g/dL (13.0-16.5); Lymphocyte # 2.26 X10^3/ul (0.83-4.51); Lymphocyte % 21.6 % (19-41); Mean Corp Hgb Conc 32.9 g/dL (32-36); Mean Corpuscular Hgb 28.5 pg (27.0-32.0); Mean Corpuscular Volume 86.5 fL (80-94); Mean Platelet Vol. 9.5 fl (6.2-12.0); Monocyte# 0.81 X10^3/uL; Monocyte% 7.7 % (0-10); NRBC Flagged by Analyzer 0 % (0-5); Neutrophil # 7.18 X10^3/uL (2.7-7.7); Neutrophil % 68.7 % (47-70); Platelet Count 351 K/mm3 (150-450); RBC Distribution Width CV 12.1 % (11.6-14.6); RBC Distribution Width SD 38.1 fl (35.1-43.9); Red Blood Count 4.46 M/mm3 (4.6-6.2); White Blood Count 10.5 K/mm3 (4.4-11.0)
[2023-03-28 04:08] LABS: ALB/GLOB Ratio 0.9 RATIO (0.9-2.4); AST(SGOT) 17 U/L (15-37); Alanine Aminotransfer ALT/SGPT 23 U/L (16-61); Albumin, Serum 3.4 g/dL (3.2-5.0); Alkaline Phosphatase 71 U/L (45-117); Anion Gap 4 (5-15); BUN 19 mg/dL (7-18); BUN/Creat Ratio 17.8 RATIO (10-20); Calcium,Total 8.6 mg/dL (8.5-10.1); Chloride 109 mmol/L (98-107); Creatinine, Serum 1.07 mg/dL (0.70-1.30); EST Glomerular Filtration Rate 79 mL/min (>60); Est Glom Filt Rate - Afr Amer 96 mL/min (>60); Estimated Creatinine Clearance 107.21 ml/min; Globulin 3.7 g/dL (2.2-4.2); Glucose 111 mg/dL (74-106); Magnesium 2.1 mg/dL (1.6-2.6); Potassium 3.7 mmol/L (3.5-5.1); Protein, Total 7.1 g/dL (6.4-8.2); Sodium Level 137 mmol/L (136-145); Thyroid Stim Hormone (TSH) 3.06 uIU/mL (0.358-3.74)
--- NOTE | 2023-03-28 04:17 | NURSING ---
[facility] transport arrived to transport pt. Report given to Camila RN at [facility], as well as transport team. Pt's belongings sent with .
--- NOTE | 2023-03-28 05:33 | EX.ED.CRITCA ---
HPI History of Present Illness Chief Complaint: Chest Pain Narrative Narrative: I was called by Dr. Rocha and Dr. Chris to ask if I could provide procedural sedation for emergent cardioversion. Patient was admitted and is in the ICU. He is reportedly in a wide-complex tachycardic rhythm. Dr. Rocha is wondering if we should take him to the Conservation Policy Analyst but would like to see if cardioversion can convert him out of this rhythm. I spoke with the patient and he is consenting for procedural sedation using propofol for electrical cardioversion. He denies any prior problems with anesthesia either with him or in his family. He has not had any recent meals in the past 6 hours. Patient notes he received a stent to his coronary artery at the end of February of this year. The patient states that it has been suggested that he may need to have a sleep study for sleep apnea. [facility] Medical History Acute ST elevation myocardial infarction (STEMI) of inferior wall (03/14/23) Afib Atherosclerotic heart disease Elevated LFTs HLD (hyperlipidemia) HTN (hypertension) Tobacco abuse Home Medications aspirin 81 mg tablet,delayed release 81 mg PO DAILY@0800 #90 tabs 03/16/23 [Rx Last Taken Unknown] ticagrelor 90 mg tablet (Brilinta) 90 mg PO BID #180 tabs 03/16/23 [Rx Last Taken Unknown] losartan 50 mg tablet 50 mg PO DAILY this is a dose decrease #90 tabs 03/23/23 [Rx Last Taken Unknown] famotidine 20 mg tablet 20 mg PO DAILY 03/27/23 [History Last Taken Unknown] metoprolol succinate 25 mg tablet,extended release 24 hr 12.5 mg (1/2 x 25 mg) PO DAILY #90 tabs 03/27/23 [Rx Last Taken Unknown] Allergy/AdvReac Type Severity Reaction Status Date / Time No Known Allergies Allergy Verified 03/27/23 10:26 Family History Father CAD (coronary artery disease) Surgical History H/O cardiac radiofrequency ablation History of coronary artery stent placement Stented coronary artery (03/14/23) Social History household members: family housing: house Smoking Status: Former smoker Smokeless tobacco user: chewing tobacco how long ago did patient quit smokin alcohol intake: current alcohol intake frequency: holidays/special occasions only substance use type: does not use caffeine: No EXAM Physical Exam Const Vital Signs: 03/27/23 16:38 03/27/23 17:05 03/27/23 18:00 Temperature 97.6 F L Temperature Source Temporal Pulse Rate 93 84 Respiratory Rate 16 16 Blood Pressure 148/90 H 124/72 H Blood Pressure Mean 109 89 Pulse Ox 94 98 97 Oxygen Delivery Method Room Air Room Air Room Air MDM MDM MDM Narrative Medical decision making narrative: Patient placed on the monitor. Given supplemental oxygen. CO2 monitoring in place. The cardioversion pads were already in place upon my arrival. They are located anteriorly and in the mid axillary line. I double checked underneath the pads to ensure there is no metallic foreign bodies. Patient received 1 mg/kg IVP of propofol. Once adequate sedation was achieved a 200 J synchronized shock was delivered which did not result in cardioversion to sinus rhythm. A second shock at 250 J was also delivered in synchronized fashion. This also did not return to a sinus rhythm. Patient was allowed to recover. He did not experience any apnea according to the CO2 detection or respiratory rate. He had very transient hypotension to a systolic of 92. He recovered and appeared neurologically intact. Care of the patient was given back over to cardiology and medicine. Lab Data Labs: Laboratory Results - last 24 hr 03/27/23 16:45 WBC 8.6 RBC 4.36 L Hgb 12.5 L Hct 38.3 L MCV 87.8 MCH 28.7 MCHC 32.6 RDW Std Deviation 39.1 RDW Coeff of Shan 12.1 Plt Count 375 MPV 9.6 Immature Gran % (Auto) 0.200 Neut % (Auto) 53.8 Lymph % (Auto) 34.1 [place] % (Auto) 9.1 Eos % (Auto) 2.3 Baso % (Auto) 0.5 Absolute Neuts (auto) 4.6 Absolute Lymphs (auto) 2.93 Nucleated RBC % 0 Sodium 140 Potassium 4.0 Chloride 109 H Carbon Dioxide 28.0 Anion Gap 3 L BUN 22 H Creatinine 1.22 Estim Creat Clear Calc 93.90 Est GFR (MDRD) Af Amer 83 Est GFR (MDRD) Non-Af 68 BUN/Creatinine Ratio 18.0 Glucose 126 H Calcium 8.9 Troponin I High Sens 253 H* Radiography Diagnostic Testing: Clinical Impression(s) from Imaging Studies Chest X-Ray 03/27/23 17:00 IMPRESSION: No active disease. Electronically Signed: Sterling Medina MD at 17:30 EST , Procedures Procedural Sedation 1 (Initial Baseline): Consent Signed: No (Patient providing verbal consent for emergent procedure) Any Problems With Anesthesia: No You/Your family experience fever (hyperthermia) w/anesthesia: No Sedation medication: Propofol Dose: 100 (mg) Total Moderate Sedation Units: 10 (min) Maliampati Score: Class II ASA Classification: I and II Discharge Plan Dx/Rx/DC Orders Clinical Impression: Bigeminy, Recent ST elevation myocardial infarction (STEMI), Non-ST elevation DC (NSTEMI), Chest pain, Encounter for cardioversion procedure Disposition Disposition: Acute Care Hospital [facility] Discharge Date/Time: 03/27/23 18:55
== END 2023-03-28 04:15 | disposition short-term general hospital (02) ==
LOC: ED 17:49 → PCU 18:59 → ICU 03-28 03:13
PROVIDERS: Internal Medicine; Nurse Practitioner; Admitting Provider Internal Medicine; Emergency Provider Emergency Medicine; PCP Family Medicine; Visit Provider Internal Medicine
DX: I47.29 Other ventricular tachycardia (principal); I11.0 Hypertensive heart disease with heart failure; I50.32 Chronic diastolic (congestive) heart failure; I48.92 Unspecified atrial flutter; I48.91 Unspecified atrial fibrillation; I25.2 Old myocardial infarction; E66.9 Obesity, unspecified; K21.9 Gastro-esophageal reflux disease without esophagitis; D64.9 Anemia, unspecified; R03.1 Nonspecific low blood-pressure reading; I25.10 Atherosclerotic heart disease of native coronary artery without angina pectoris; E78.5 Hyperlipidemia, unspecified; Z79.82 Long term (current) use of aspirin; Z95.5 Presence of coronary angioplasty implant and graft; R79.9 Abnormal finding of blood chemistry, unspecified; Z79.899 Other long term (current) drug therapy; F17.220 Nicotine dependence, chewing tobacco, uncomplicated; Z68.32 Body mass index [BMI] 32.0-32.9, adult
CPT/HCPCS: 36415; 71045; 80048; 80053; 83735; 84443; 84484; 85025; 85610; 85730; 93005; 93458; 96365; 96366; 96367; 96375; 96376; 99221; 99285; J7030; Q9967; A4216; C1769; C1894; G0378

== ENCOUNTER 2023-04-13 10:23 | Emergency (ER) | payer BC, SELFPAY ==
[2023-04-13 10:24] VITALS: BP 133/88; PULSE 80; RESP 18; TEMP 36.6; O2SAT 98; BMI 31.2
--- NOTE | 2023-04-13 10:41 | CT_ITS ---
STUDY: CTA CHEST REASON FOR EXAM: Male, 47 years old. Chest pain, history of PE to RLL RADIATION DOSAGE (If Supplied By Facility): CTDIvol = ( 13.41 ) mGy, DLP = ( 494.51 ) mGycm TECHNIQUE: The examination was performed with the intravenous administration of IV 100mL Isovue-370. Post-processing of the angiographic images was performed, with multiplanar reformation and 3D reconstruction. Individualized dose optimization techniques were used for this CT. COMPARISON: Comparison is made with prior study dated March 14, 2023. FINDINGS: Normal enhancement of the main pulmonary artery and right and left pulmonary arteries. Normal enhancement of the bilateral peripheral pulmonary arteries. There is no demonstrated pulmonary embolism. Normal thoracic aorta and visualized great vessels. There is no demonstrated aortic dissection. Normal heart and pericardium. Normal mediastinum. Normal hilar regions. Normal visualized trachea and bronchi. The lungs are well expanded. Patchy infiltrate in the right lower lobe with a tiny right pleural effusion. Focal infiltrate in the right middle lobe. Normal chest wall structures. There are mild degenerative changes of thoracic spine. Normal visualized upper abdomen. CT/CTA Chest W/WO Contrast IMPRESSION: Patchy infiltrate in the right lower lobe with a tiny right pleural effusion as well as patchy infiltrate in the right middle lobe. No evidence of pulmonary embolism. Electronically Signed: Keaton Desir MD at 12:34 EST ,
--- NOTE | 2023-04-13 10:41 | EKG12_ITS ---
Test Reason : CHEST DISCOMFORT Blood Pressure : / mmHG Vent. Rate : 064 BPM Atrial Rate : 064 BPM P-R Int : 168 ms QRS Dur : 104 ms QT Int : 446 ms P-R-T Axes : 030 030 -51 degrees QTc Int : 460 ms Normal sinus rhythm Inferior infarct , age undetermined Abnormal ECG Confirmed by OWEN MAYA, NATHALIE ([id number]), city editor RUSSELL MARIANO ([id number]) on 04/14/2023 9:42:16 AM Referred By: Confirmed By:NATHALIE WEAVER MD
--- NOTE | 2023-04-13 10:59 | EX.ED.DYSGE1 ---
HPI History of Present Illness Chief Complaint: Other, Pain/Inj Detail of Chief Complaint: Right chest/lung pain Informant: patient and spouse/S.O. Narrative Narrative: Patient presents to the emergency department complaint of pain in his right chest and lung that started around 3 to 4 AM this morning. Pain worse with breathing. Patient tells me he was recently admitted to the [facility] for about 2 weeks where he was diagnosed with PE after having an ablation on the eighth of the month for history of V. tach. Patient also has an ICD. Patient was on blood thinners but then had to be off for 2 days to have his ICD placed. Currently he is on apixaban. Patient was essentially symptom-free when discharged and then last night developed more pain on the right side. He was advised to come in and get evaluated to make sure that he did not have more significant clot burden potentially. Patient states that now that has been up and moving around his pain is mostly resolved still noticed that maybe with some very deep breaths. [facility] Medical History (Reviewed 03/27/23 @ 10:43 by Alma Lezama MECHANICAL SERVICE TECHNICIAN, MECHANICAL SERVICE TECHNICIAN-C) Acute ST elevation myocardial infarction (STEMI) of inferior wall (03/14/23) Afib Atherosclerotic heart disease Elevated LFTs HLD (hyperlipidemia) HTN (hypertension) Tobacco abuse Home Medications losartan 50 mg tablet 50 mg PO DAILY this is a dose decrease #90 tabs 03/23/23 [Rx Last Taken Unknown] famotidine 20 mg tablet 20 mg PO DAILY 03/27/23 [History Last Taken Unknown] amiodarone 200 mg tablet 200 mg PO DAILY 04/10/23 [History Last Taken Unknown] apixaban 5 mg tablet (Eliquis) 5 mg PO BID 04/10/23 [History Last Taken Unknown] clopidogrel 75 mg tablet (Plavix) 75 mg PO DAILY 04/10/23 [History Last Taken Unknown] metoprolol succinate 25 mg tablet,extended release 24 hr 25 mg PO DAILY #90 tabs 04/10/23 [Rx Last Taken Unknown] rosuvastatin 5 mg tablet 5 mg PO DAILY 04/10/23 [History Last Taken Unknown] doxycycline monohydrate 100 mg capsule 100 mg PO BID #20 CAPSULES 04/13/23 [Rx Last Taken Unknown] Allergy/AdvReac Type Severity Reaction Status Date / Time No Known Allergies Allergy Verified 04/13/23 10:24 Family History (Reviewed 03/27/23 @ 10:43 by Alma Lezama MECHANICAL SERVICE TECHNICIAN, MECHANICAL SERVICE TECHNICIAN-C) Father CAD (coronary artery disease) Surgical History H/O cardiac radiofrequency ablation History of coronary artery stent placement Stented coronary artery (03/14/23) Social History (Reviewed 03/27/23 @ 10:43 by Alma Lezama MECHANICAL SERVICE TECHNICIAN, MECHANICAL SERVICE TECHNICIAN-C) household members: family housing: house Smoking Status: Former smoker Smokeless tobacco user: chewing tobacco how long ago did patient quit smokin alcohol intake: current alcohol intake frequency: holidays/special occasions only substance use type: does not use caffeine: No ROS ROS ED Review of Systems ROS Unobtainable: other Constitutional Constitutional ED: Reports lethargy; Denies chills, fever(s), sweats or weight loss Eyes Eyes: Denies blurry vision, change in vision or diplopia ENT ENT ED: Denies rhinorrhea or sore throat Cardiovascular Cardiovascular: Reports chest pain; Denies orthopnea or racing heartbeat Respiratory/Chest Respiratory/Chest: Denies cough, dyspnea, dyspnea on exertion, orthopnea or sputum Gastrointestinal Gastrointestinal: Denies abdominal pain, diarrhea, nausea or vomiting Genitourinary Genitourinary ED: Denies dysuria, hematuria or urinary frequency Musculoskeletal Musculoskeletal: Denies arthralgias, back pain, myalgias or neck pain Integumentary Denies abscess, Abrasions or rash Neurologic Neurologic: Denies headache(s) or weakness Psychiatric Psychiatric: Denies anxiety, depression or suicidal thoughts Endocrine Endocrinology: Denies polydipsia, polyphagia or polyuria Hematologic/Lymphatic Hematologic/Lymphatic: Denies easy bleeding, easy bruising or lymphadenopathy Allergic/Immunologic Allergic/Immunologic ED: Denies mouth swelling, tongue swelling or urticaria EXAM Physical Exam Const Vital Signs: 04/13/23 10:24 04/13/23 12:39 04/13/23 12:39 Temperature 97.9 F Temperature Source Temporal Pulse Rate 80 67 Respiratory Rate 18 14 Respiratory Effort Normal Non-Labored Respiratory Pattern Normal Blood Pressure 133/88 H 118/78 Blood Pressure Mean 103 91 Pulse Ox 98 99 Oxygen Delivery Method Room Air Room Air Positive well nourished and well developed General Appearance ED: well developed and NAD HEENT Reports TM's clear and moist mucous membranes normocephalic and atraumatic; Negative for trauma or tenderness Tympanic Membrane ED: Yes TM's clear Eyes PERRL and EOMs intact bilaterally General Eye ED: Negative for pale conjunctiva or scleral icterus Neck no lymphadenopathy, supple and no JVD General: Negative for tenderness Chest Wall inspection of chest normal and palpation of chest normal Chest: Negative for tenderness Resp normal respiratory effort and clear to auscultation bilaterally Effort and Inspection: Negative for respiratory distress or pain with movement Auscultation: Negative for rhonchi, wheezes or diminished lung sounds Cardio regular rate, regular rhythm, S1 normal heart sound, S2 normal heart sound and no murmurs Peripheral Pulses: pulses 2+ throughout GI normal to inspection, nondistended, normoactive bowel sounds, soft to palpation, non-tender, non-distended and no masses Back/Spine no CVA tenderness and no thoracic nor lumbar tenderness Extremity normal to inspection General Extremety ED: Negative for edema General Extremity: Negative for edema Neuro oriented x3, CN's II-XII intact bilaterally, no sensory deficits noted and gait normal Sensorium / Orientation: awake, alert, oriented to person, oriented to place and oriented to time Motor Exam: strength 5/5 throughout and strength abnormal Psych mental status grossly normal Skin no rashes or lesions noted and no wounds MDM MDM MDM Narrative Medical decision making narrative: Patient presents with pleuritic right-sided chest pain. He does have a cough with lying back. He had no fever chills or sweats. Recent diagnosis of PE and is currently anticoagulated with Eliquis. IV line established on arrival. CBC with differential obtained showed a white count of 10.1 with hemoglobin 10.9 and platelet count of 374. Chemistries unremarkable. Troponin was normal at 44. EKG obtained arrival showed a sinus rhythm with a rate of 64 bpm. I did obtain a CTA of the chest to evaluate further which was read by radiology as no evidence of PE however he did have infiltrates in the right lower lobe and right middle lobe. This point clinically he looks well. Will cover him with doxycycline for 10 days. Advised to follow-up with his primary care physician within next 3 to 5 days. Vies to return if worsening pain, increasing shortness of breath, or condition should worsen anyway. Lab Data Attestation: I reviewed the patient's lab results. Labs: Laboratory Results - last 24 hr 04/13/23 11:09 WBC 10.1 RBC 3.85 L Hgb 10.9 L Hct 34.9 L MCV 90.6 MCH 28.3 MCHC 31.2 L RDW Std Deviation 40.9 RDW Coeff of Shan 12.6 Plt Count 374 MPV 9.2 Immature Gran % (Auto) 0.600 Neut % (Auto) 67.3 Lymph % (Auto) 20.2 [place] % (Auto) 8.6 Eos % (Auto) 2.9 Baso % (Auto) 0.4 Absolute Neuts (auto) 6.8 Absolute Lymphs (auto) 2.03 Nucleated RBC % 0 Sodium 137 Potassium 4.0 Chloride 108 H Carbon Dioxide 27.0 Anion Gap 2 L BUN 11 Creatinine 1.11 Estim Creat Clear Calc 102.02 Est GFR (MDRD) Af Amer 92 Est GFR (MDRD) Non-Af 76 BUN/Creatinine Ratio 9.9 L Glucose 117 H Calcium 9.2 Troponin I High Sens 44 Radiography Diagnostic Testing: Clinical Impression(s) from Imaging Studies Chest CTA 04/13/23 10:41 IMPRESSION: Patchy infiltrate in the right lower lobe with a tiny right pleural effusion as well as patchy infiltrate in the right middle lobe. No evidence of pulmonary embolism. Electronically Signed: Keaton Desir MD at 12:34 EST , EKG Initial EKG: Attestation: I personally reviewed and interpreted this EKG as follows: Comments: Sinus rhythm with rate of 64 bpm with no acute ST segment changes Discharge Plan Triage Chief Complaint: Other, Pain/Inj ED Provider: Ying Urena Dx/Rx/DC Orders Clinical Impression: Chest pain, Pneumonia Instructions: ED Chest Pain, Uncertain Cause, ED Pneumonia (Adult) Prescriptions: New doxycycline monohydrate 100 mg capsule 100 mg PO BID Qty: 20 0RF No Action famotidine 20 mg tablet 20 mg PO DAILY Patient Comments: TAKE ONE TABLET BY MOUTH TWICE DAILY NEEDED losartan 50 mg tablet 50 mg PO DAILY Qty: 90 3RF metoprolol succinate 25 mg tablet extended release 24 hr 25 mg PO DAILY Qty: 90 3RF Patient Comments: pt. took full 25 mg dose today, told to skip dose tomorrow and start 12.5 mg/day on wednesday 03/29 amiodarone 200 mg tablet 200 mg PO DAILY Eliquis 5 mg tablet 5 mg PO BID clopidogrel [Plavix] 75 mg tablet 75 mg PO DAILY rosuvastatin 5 mg tablet 5 mg PO DAILY Primary Care Provider: Nanette Zimmer Referrals: Nanette Zimmer, PA-C [Primary Care Provider] - 3-5 Days Disposition Disposition: Home, Self Care
[2023-04-13 11:18] LABS: Absolute Lymphocyte Count 2.03 X10^3/uL (0.83-4.51); Absolute Neutrophil Count 6.8 X10^3/uL (2.0-7.7); Basophil# 0.04 X10^3/uL; Basophil% 0.4 % (0-1); Eosinophil# 0.29 X10^3/uL; Eosinophils% 2.9 % (0-5); Hematocrit 34.9 % (40-54); Hemoglobin 10.9 g/dL (13.0-16.5); Lymphocyte # 2.03 X10^3/ul (0.83-4.51); Lymphocyte % 20.2 % (19-41); Mean Corp Hgb Conc 31.2 g/dL (32-36); Mean Corpuscular Hgb 28.3 pg (27.0-32.0); Mean Corpuscular Volume 90.6 fL (80-94); Mean Platelet Vol. 9.2 fl (6.2-12.0); Monocyte# 0.86 X10^3/uL; Monocyte% 8.6 % (0-10); NRBC Flagged by Analyzer 0 % (0-5); Neutrophil # 6.77 X10^3/uL (2.7-7.7); Neutrophil % 67.3 % (47-70); Platelet Count 374 K/mm3 (150-450); RBC Distribution Width CV 12.6 % (11.6-14.6); RBC Distribution Width SD 40.9 fl (35.1-43.9); Red Blood Count 3.85 M/mm3 (4.6-6.2); White Blood Count 10.1 K/mm3 (4.4-11.0)
[2023-04-13] MEDS: 0.9% Normal Saline (1000mL) 1,000 ML 150 ML IV (11:20)
[2023-04-13 11:35] LABS: Anion Gap 2 (5-15); BUN 11 mg/dL (7-18); BUN/Creat Ratio 9.9 RATIO (10-20); Calcium,Total 9.2 mg/dL (8.5-10.1); Chloride 108 mmol/L (98-107); Creatinine, Serum 1.11 mg/dL (0.70-1.30); EST Glomerular Filtration Rate 76 mL/min (>60); Est Glom Filt Rate - Afr Amer 92 mL/min (>60); Estimated Creatinine Clearance 102.02 ml/min; Glucose 117 mg/dL (74-106); Sodium Level 137 mmol/L (136-145); Troponin-I HS 44 pg/mL (3.0-78.0)
[2023-04-13 12:39] VITALS: BP 118/78; PULSE 67; RESP 14; O2SAT 99
[2023-04-13] MEDS: Doxycycline 100 MG CAPSULE PO (13:17)
[2023-04-13 13:19] VITALS: BP 123/86; PULSE 67; RESP 14; TEMP 36.6; O2SAT 99
== END 2023-04-13 13:22 | disposition home or self-care (01) ==
PROVIDERS: Emergency Provider Emergency Medicine; PCP Family Medicine; Visit Provider Emergency Medicine
DX: R07.9 Chest pain, unspecified (principal); I48.91 Unspecified atrial fibrillation; J18.9 Pneumonia, unspecified organism; Z95.810 Presence of automatic (implantable) cardiac defibrillator; Z87.891 Personal history of nicotine dependence; I25.2 Old myocardial infarction; I25.10 Atherosclerotic heart disease of native coronary artery without angina pectoris; E78.5 Hyperlipidemia, unspecified; I10 Essential (primary) hypertension; Z79.899 Other long term (current) drug therapy; Z79.01 Long term (current) use of anticoagulants; Z79.02 Long term (current) use of antithrombotics/antiplatelets; Z95.5 Presence of coronary angioplasty implant and graft
CPT/HCPCS: 71275; 80048; 84484; 85025; 93005; 96360; 96361; 99284; J7030; Q9967; A4216

== ENCOUNTER → 2023-05-14 | Outpatient (CLI) | payer BC, SELFPAY ==
[2023-05-14 10:58] LABS: AST(SGOT) 24 U/L (15-37); Alanine Aminotransfer ALT/SGPT 42 U/L (16-61); Albumin, Serum 3.8 g/dL (3.2-5.0); Alkaline Phosphatase 87 U/L (45-117); Bilirubin, Direct 0.14 mg/dL (0.00-0.30); Cholesterol 163 mg/dL (200); Globulin 3.7 g/dL (2.2-4.2); High Density Lipoprotein 37 mg/dL; Protein, Total 7.5 g/dL (6.4-8.2); Triglycerides 209 mg/dL; Very Low Density Lipoprotein 42 mg/dL (5-40)
== END | disposition home or self-care (01) ==
LOC: LAB 09:36
PROVIDERS: PCP Internal Medicine; Referring Provider Internal Medicine Cardiovascular Disease; Visit Provider Internal Medicine Cardiovascular Disease
DX: R79.89 Other specified abnormal findings of blood chemistry (principal); E78.5 Hyperlipidemia, unspecified
CPT/HCPCS: 36415; 80061; 80076

== ENCOUNTER → 2023-05-18 | Outpatient (CLI) | payer BC, SELFPAY | END | disposition home or self-care (01) | LOC: SL 20:07 | PROVIDERS: PCP Internal Medicine; Referring Provider Nurse Practitioner Acute Care; Visit Provider Nurse Practitioner Acute Care | DX: G47.10 Hypersomnia, unspecified (principal) | CPT/HCPCS: 95810 ==

== ENCOUNTER → 2023-05-27 | Outpatient (CLI) | payer BC, SELFPAY ==
--- NOTE | 2023-05-27 14:50 | VDUE_ITS ---
Reason For Study: LUE Pain Left Proximal Left jugular vein is spontaneous, widely patent, phasic, with no intraluminal echogenicity noted. Left subclavian vein is spontaneous, widely patent, phasic, with no intraluminal echogenicity noted. Left Arm Left axillary vein is spontaneous, patent, phasic, competent, compressible and demonstrates augmentation. Left brachial vein is compressible. Left cephalic vein is compressible. Left basilic vein is compressible. Left Lower Arm Left radial vein is compressible. Left ulnar vein is compressible. Patient Safety Venous duplex with B-Mode, Color and Pulsed Wave Doppler. Preliminary results given to Asha DELGADILLO at [facility]. VL/Venous Duplex US, Unilateral Interpretation Summary Deep veins of the left upper extremity are patent and compressible segmentally. There is no evidence of deep vein thrombosis. Superficial veins of the left upper extremity are patent and compressible segme ntally. There is no evidence of superficial vein thrombosis. Ordering Physician: Olu Cartagena Referring Physician: David Forrester Performed By: Mio Mccann RVT and Student ???
[2023-05-27 16:56] LABS: AST(SGOT) 28 U/L (15-37); Alanine Aminotransfer ALT/SGPT 52 U/L (16-61); Alkaline Phosphatase 80 U/L (45-117); Bilirubin, Direct 0.15 mg/dL (0.00-0.30); Globulin 3.7 g/dL (2.2-4.2); Protein, Total 7.7 g/dL (6.4-8.2); Troponin-I HS 13 pg/mL (3.0-78.0)
== END | disposition home or self-care (01) ==
PROVIDERS: PCP Internal Medicine; Referring Provider Internal Medicine Cardiovascular Disease; Visit Provider Internal Medicine Cardiovascular Disease
DX: Z95.810 Presence of automatic (implantable) cardiac defibrillator (principal); M79.602 Pain in left arm; R20.0 Anesthesia of skin; R20.2 Paresthesia of skin; R79.89 Other specified abnormal findings of blood chemistry; R07.9 Chest pain, unspecified
CPT/HCPCS: 36415; 80076; 84484; 93971

== ENCOUNTER → 2023-06-04 | Outpatient (CLI) | payer BC, SELFPAY | END | disposition home or self-care (01) | LOC: SL 11:00 | PROVIDERS: PCP Internal Medicine; Visit Provider Nurse Practitioner Acute Care | DX: Z00.00 Encounter for general adult medical examination without abnormal findings (principal) ==

== ENCOUNTER → 2023-06-25 | Outpatient (CLI) | payer BC, SELFPAY ==
--- NOTE | 2023-06-25 20:28 | STRESSREP ---
Stress Test Report Exercise myocardial perfusion stress test. 47-year-old man with a history of previous inferior myocardial infarction status post ICD implantation with recurrent presyncope Stress protocol: Resting EKG demonstrates normal sinus rhythm with a rate of 56 bpm resting blood pressure is 132/90 mmHg. The patient exercised according to the regular [facility]oham protocol for a total duration of 10 minutes attaining a maximum heart rate of 139 bpm which was 79% of maximum predicted heart rate; the maximum workload was 13.3 metabolic equivalents. At rest there were no ST or T wave changes noted to suggest ischemia though T wave inversions were noted in lead III and aVF and at peak exercise upsloping ST changes only were noted which did not meet the criteria for ischemia. T wave inversions persisted in the inferior leads. No clinical angina was noted the test was terminated due to the target heart rate being achieved/fatigue. The peak blood pressure was 180/74 mmHg. Rate-pressure product was 17,000. Myocardial perfusion protocol. 13.9 mCi of technetium 99m sestamibi was injected at rest. The patient exercised according to regular Soham protocol for total duration of 10 minutes and at peak exercise 44 mCi of technetium 99m sestamibi was injected stress images were obtained stress and rest images were reconstructed in comparing the short axis vertical long and horizontal long axis. Gated images were also obtained. Perfusion SPECT analysis: Review of the stress images demonstrate normal uptake of tracer noted in all areas of the myocardium except for the inferior wall with a medium size defect noted in the basal to mid inferior wall. The resting images similarly demonstrate normal uptake of tracer noted in all areas of the myocardium with a defect noted in the basal to mid inferior wall. There is GI attenuation artifact noted and thus ischemia cannot be completely excluded. Gated SPECT analysis: The gated ejection fraction is 63%. Conclusion: Exercise myocardial perfusion stress test with evidence of extensive basal to mid inferior infarct. Preserved ejection fraction GI attenuation artifact precludes definitive exclusion of ischemia though less likely.
== END | disposition home or self-care (01) ==
LOC: CVS 06:40
PROVIDERS: PCP Internal Medicine; Referring Provider Internal Medicine Cardiovascular Disease; Visit Provider Internal Medicine Cardiovascular Disease
DX: R07.9 Chest pain, unspecified (principal)
CPT/HCPCS: 78452; 93017; A9500; A4216